=== PATIENT | female | born 1950 | race Caucasian/White ===

== ENCOUNTER 2018-10-29 17:35 | Inpatient (IN) ==
[2018-10-29] MEDS ORDERED: LASIX IV SCH (19:45)
--- NOTE | 2018-10-29 20:24 | Diag Imaging Result Doc PS360 ---
EXAM: CHEST-2 VIEWS HISTORY: SOB TECHNIQUE: Chest two views COMPARISON: 08/13/2017 FINDINGS: The lungs are hyperexpanded. The heart is not enlarged. The vessels are not distended. No consolidation. Likely fibrosis. No pleural effusions. IMPRESSION: Emphysema Electronically signed by Jon Sarabia 10/29/2018 8:22 PM
[2018-10-29] MEDS: LEVAQUIN 250 MG/D5W 250 MG/50 ML IVPB IV SCH (20:32)
[2018-10-29] MEDS ORDERED: NICODERM PATCH TD PRN (21:16)
[2018-10-29 21:25] LABS: HEMOGLOBIN A1C 5.7 % (4.8-6.0)
[2018-10-29 21:26] LABS: BASO# 0.01 X1000 (0.0-0.2); BASO% 0.2 % (0.0-0.8); EOS# 0.13 X1000 (0.0-0.7); EOS% 2.2 % (0.0-10.0); HEMATOCRIT 21.6 % (37.0-47.0); HEMOGLOBIN 6.7 g/dL (12.0-16.0); IMM GRAN# 0.06 X1000 (0.0-0.04); MCH 29.1 PG (27-31); MCV 93.9 FL (81-99); MONO# 0.43 X1000 (0.11-0.59); MONO% 7.2 % (1.7-9.3); MPV 9.7 FL (7.4-10.4); NEUT# 4.77 X1000 (1.4-6.5); NEUT% 79.4 % (42.2-75.2); PLT 260 X1000 (130-400); RDW 14.2 % (11.5-14.5)
[2018-10-29] MEDS ORDERED: D50W SYRINGE IV ONE (21:30)
[2018-10-29 21:36] LABS: CALCIUM 7.9 mg/dL (8.8-10.2); CREATININE 2.7 mg/dL (0.5-0.9); POTASSIUM 4.1 mmol/L (3.5-5.1)
[2018-10-29 21:43] LABS: ALB/GLOB RATIO 0.8; ALBUMIN 2.9 g/dL (3.5-5.0); CALCIUM 7.6 mg/dL (8.8-10.2); CREATININE 2.8 mg/dL (0.5-0.9); TOTAL BILIRUBIN 0.29 mg/dL (0.20-1.00); TOTAL PROTEIN 6.6 g/dL (6.3-8.3)
[2018-10-29] MEDS: HUMULIN R SUBQ SCH (23:12)
[2018-10-29] MEDS: NS 250 ML IV SCH (23:30)
[2018-10-29] MEDS ORDERED: NS 250 ML ONE (23:40)
--- NOTE | 2018-10-30 00:11 | HISTORY AND PHYSICAL ---
CHIEF COMPLAINT: Coughing, fatigue and weakness. HPI: She is a 68-year-old white female was not seen in my office since 04/16/2018. Apparently she was seen yesterday. Interval history was reviewed. The patient has left-sided hydronephrosis with stricture and a stone. She has solitary kidney. Baseline creatinine 1.7. She was given dexamethasone yesterday followed by [facility] and did some blood workup. The laboratory data showed worsening of the renal function tests, creatinine was last time in my office 04/17/2018 1.5 and it has gone up to 2.8. CBC showed hemoglobin of 8, hematocrit 24. Patient extremely dyspnea on exertion and not able to get better. A1c 5.7. Admitted to the hospital for worsening of the kidney function tests, acute COPD exacerbation, anemia requiring blood transfusion. For all these reasons, patient was hospitalized. The patient continues to smoke. PAST MEDICAL HISTORY: Absence of right kidney, Crohn disease in remission, type 2 diabetes well controlled, hypertension, chronic hydronephrosis left kidney due to distal ureteral stricture and kidney stone seen by Dr. 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 PAST SURGICAL HISTORY: Is tonsillectomy, pilonidal cyst resection drainage, laparotomy with cysto gastrostomy for cirrhosis for pancreatitis, history of intraabdominal abscess due to Bacteroides infection status post drainage of splenic abscess complicated by pleural effusion, chest tube insertion and complete hysterectomy due to abnormal Pap smear, partial vaginectomy with abdominal dysplasia by Dr. Machuca, cholecystectomy, tubal ligation, cystoscopy followed by stent, left laser lithotripsy, renal pelvic biopsy on 08/22/2018 and the biopsy was negative for malignancy. MEDICATIONS: Lisinopril 10 mg p.o. b.i.d., Protonix 40 daily, Tricor 145 mg daily, amlodipine 10 mg daily, Lexapro 20 daily, glipizide 10 p.o. b.i.d., Lantus 10 units subcu daily, Januvia 100 daily, Ventolin HFA as needed. ALLERGIES: Adhesive tape, Wellbutrin, penicillin. SOCIAL HISTORY: She is , 1 kid, lives in [place]. Continues to smoke. 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 FAMILY HISTORY: Father of renal cell carcinoma at 73. Mom at 74 with complications from diabetes and renal failure. HEALTH MAINTENANCE: Flu vaccine 2018, pneumococcal 2017, last mammography 04/2018, DEXA scan 01/2004, colonoscopy 2015. REVIEW OF SYSTEMS: HEENT: No headache, no vision problem, no earache, no sore throat. Neck: No goiter. No lymphadenopathy. No bruit. Cardiopulmonary: No chest pain, cough, shortness of breath, wheezing, continues to smoke. GI: Less abdominal distention and no belly pain. No dysuria, hesitancy, frequency. History of vaginal cancer under care of Dr. Machuca. No bleeding per vagina and no swelling of legs. No claudication symptoms. Neuro: No focal symptoms or weakness. PHYSICAL EXAMINATION: Temperature is 98.6, pulse 98, blood pressure 101/60, 5 feet 1, 119 pounds. HEENT: Atraumatic, normocephalic. TMs are normal. Nose and throat within normal limits. NECK: Supple. No lymphadenopathy. No goiter. CHEST: Bilateral wheezing. HEART: Sounds are regular. BELLY: Is soft, obese and slightly distended. No peripheral edema. No obvious neurological deficits. INVESTIGATIONS: In my office yesterday, sodium 134, potassium 4.5, chloride 102, BUN 21, creatinine 2.8, glucose 136. CBC. White cell count 10, hematocrit 24, platelets 396,000. A1c 5.7. ASSESSMENT AND PLAN: 1. A 68-year-old white female basically admitted to the hospital with acute chronic obstructive pulmonary disease exacerbation. Plan is oxygen, bronchodilators, IV Levaquin 250 once daily. 2. Tobacco abuse. Nicotine patch. 3. History of asthma on ProAir and Symbicort. 4. Type 2 diabetes is well controlled. Will hold medications and will continue on sliding scale with insulin coverage. 5. Hyperlipidemia on fenofibrate. 6. Hypertension on lisinopril 10 p.o. b.i.d., Norvasc 10 daily and Crohn disease stable. 7. Vaginal carcinoma status post excision external radiation followed by implant seeds. 8. Patient has chronic left hydronephrosis with solitary kidney, status post biopsy and stent by Dr. Fox in August. At that time creatinine is 1.7. Will repeat the CT. 9. Anemia and will closely watch. Will transfuse unit of packed RBC. Vaccinations protocol was up-to-date and will follow up pending labs. cc: Bin Galarza MD
[2018-10-30] MEDS: HUMULIN R SUBQ SCH ×4 (06:36→22:39)
--- NOTE | 2018-10-30 09:40 | Diag Imaging Result Doc PS360 ---
CT IVP (RENAL STONE SEARCH) - 10/30/2018 INDICATION: hydro on left TECHNIQUE: COMPARISON: 09/13/2018 FINDINGS: There is some stable interstitial fibrosis in the lung bases. No infiltrates. Heart size is normal with no pericardial effusion. There is worsening splenomegaly. The spleen measures 15.8 x 13.5 x 6.5 cm. The left nephroureteral stent has been removed. There is severe left hydronephrosis with surrounding edema. There is a small calyceal stone in the left midpole measuring about 3 mm. No radiodense ureteral stones. The urinary bladder is abnormal with diffuse wall thickening and surrounding edema consistent with severe cystitis. Uterus is absent. Rectum is normal. No bowel obstruction or inflammation. No significant constipation. There are moderate degenerative changes of the spine. No acute or suspicious bony lesion. IMPRESSION: 1. Severe left hydronephrosis with surrounding edema. The right kidney is absent. 2. Severely abnormal urinary bladder consistent with chronic cystitis. 3. Small left renal calyceal stone. 4. Worsening splenomegaly. Electronically signed by Solomon Sellers 10/30/2018 9:38 AM
[2018-10-30 09:54] LABS: BASO# 0.02 X1000 (0.0-0.2); BASO% 0.3 % (0.0-0.8); EOS# 0.09 X1000 (0.0-0.7); EOS% 1.1 % (0.0-10.0); HEMOGLOBIN 9.7 g/dL (12.0-16.0); IMM GRAN% 1.3 % (0.0-0.5); LYMPH# 0.51 X1000 (1.2-3.4); LYMPH% 6.5 % (20.5-51.1); MCH 29.8 PG (27-31); MCHC 32.3 g/dL (33-37); MONO# 0.63 X1000 (0.11-0.59); MPV 9.3 FL (7.4-10.4); NEUT# 6.55 X1000 (1.4-6.5); NEUT% 82.8 % (42.2-75.2); PLT 285 X1000 (130-400); RBC 3.26 XMIL (4.2-5.4); RDW 14.7 % (11.5-14.5)
[2018-10-30] MEDS ORDERED: NS 1,000 ML IV SCH (19:15)
--- NOTE | 2018-10-30 21:29 | PROGRESS NOTE ---
DATE: 10/31/2018 SUBJECTIVE: The patient did receive 1 unit of packed RBCs. The patient went for CT and creatinine is 2.8 and complaints of cough and shortness of breath, wheezing. Blood sugars were dropping. OBJECTIVE: Vital signs: Temperature is 98 degrees, pulse is 101, blood pressure is 118/69. HEENT Exam: Within normal limits, wheezing bilaterally. Cardiovascular: Heart sounds are regular. Abdomen: Belly is soft, distended. Extremities: No peripheral edema. Neurologic: No obvious neurological deficits. INVESTIGATIONS: 1. CBC: White cell count 7.9, hematocrit 30, platelets 285,000. SMA 7 is pending. Glucose 42. 2. CT renal stone search: Severe left hydronephrosis with edema and right kidney is absent and also cystitis, small renal caliceal stone and splenomegaly. ASSESSMENT AND PLAN: 1. Hypoglycemia. Hold the medication. D50 was given. Continue sliding scale. 2. Chronic obstructive pulmonary disease exacerbation, bronchodilators and IV Levaquin. 3. Anemia, transfuse 1 unit of packed RBCs, stable. 4. Chronic left hydronephrosis with elevation of creatinine. Gentle hydration. Discussed with Dr. Fox and consult for tomorrow and follow up on urine culture and hold the home medications at this time and discussed with the patient's in my office and repeat the labs in the morning. LEVEL OF DOCUMENTATION: 25 minutes. cc: Bin Galarza MD MTDD
[2018-10-30] MEDS: NS 250 ML IV SCH (22:39)
[2018-10-30] MEDS: LEVAQUIN 250 MG/D5W 250 MG/50 ML IVPB IV SCH (22:39)
[2018-10-31] MEDS: NS 250 ML IV SCH ×2 (02:15→12:13)
[2018-10-31] MEDS: ROBITUSSIN-DM PO PRN ×2 (03:02→08:28)
[2018-10-31] MEDS: ZOFRAN IV PRN (03:03)
[2018-10-31] MEDS: HUMULIN R SUBQ SCH ×4 (06:01→20:14)
[2018-10-31 07:29] LABS: BASO# 0.02 X1000 (0.0-0.2); BASO% 0.4 % (0.0-0.8); EOS# 0.12 X1000 (0.0-0.7); EOS% 2.4 % (0.0-10.0); HEMATOCRIT 26.8 % (37.0-47.0); HEMOGLOBIN 8.5 g/dL (12.0-16.0); IMM GRAN# 0.05 X1000 (0.0-0.04); LYMPH# 0.43 X1000 (1.2-3.4); LYMPH% 8.7 % (20.5-51.1); MCH 29.4 PG (27-31); MCHC 31.7 g/dL (33-37); MCV 92.7 FL (81-99); MONO# 0.48 X1000 (0.11-0.59); MONO% 9.7 % (1.7-9.3); NEUT# 3.87 X1000 (1.4-6.5); NEUT% 77.8 % (42.2-75.2); PLT 234 X1000 (130-400); RBC 2.89 XMIL (4.2-5.4); RDW 14.7 % (11.5-14.5); WBC 4.97 X1000 (4.8-10.8)
[2018-10-31 07:40] LABS: CALCIUM 7.6 mg/dL (8.8-10.2); CREATININE 2.7 mg/dL (0.5-0.9); POTASSIUM 4.5 mmol/L (3.5-5.1)
[2018-10-31] MEDS ORDERED: FENTANYL ONE (09:39)
[2018-10-31] MEDS ORDERED: DIPRIVAN 1% ONE (09:40)
[2018-10-31] MEDS ORDERED: ROBINUL ONE (09:41)
--- NOTE | 2018-10-31 10:26 | Diag Imaging Result Doc PS360 ---
RETROGRADES 2 OR 3 FILMS - 10/31/2018 INDICATION: LEFT RETOGRADE, LEFT STIENT , LEFT HYDRO TECHNIQUE: Left sided ureterogram. The exam was performed by the patient's urologist. Total fluoroscopy time was 14 seconds. 12 images were obtained. COMPARISON: 08/22/2018 FINDINGS: There is no stent on the initial exam. Contrast injection into the left ureter demonstrates rather severe left hydronephrosis stable from the prior exam. A left nephroureteral stent was placed in good position. IMPRESSION: Left hydronephrosis. Good placement of left nephroureteral stent. Electronically signed by Solomon Sellers 10/31/2018 10:24 AM
[2018-10-31] MEDS ORDERED: MORPHINE ONE ×4 (10:54→11:30)
[2018-10-31] MEDS ORDERED: LR 500 ML ONE (10:55)
[2018-10-31] MEDS ORDERED: ROCEPHIN 1 GM in NS 50 ML IV ONE (11:00)
--- NOTE | 2018-10-31 11:35 | CONSULTATION ---
DATE OF CONSULTATION: 10/31/2018 CHIEF COMPLAINT: Left hydronephrosis with acute kidney injury. HISTORY OF PRESENT ILLNESS: Ms. Holland is a 68-year-old with type 2 diabetes, hypertension, solitary left kidney, history of pancreatitis, gastroesophageal reflux disease, and vaginal cancer who presents in consultation regarding left hydronephrosis and elevated renal function. The patient had undergone a cystoscopy and a left ureteroscopy with laser incision of ureteropelvic junction due to ureteropelvic junction obstruction. The patient had some stones removed at that time, and had a stent placed, and was subsequently removed in September. She was scheduled to see me back in the office in the next week. However, patient developed a COPD exacerbation, and was seen by Dr. Galarza's office. She was found to have an elevated creatinine at 2.8 from 1.5, and a low hemoglobin and hematocrit. The patient is admitted to the hospital, and underwent a CT scan yesterday which showed worsening of her left hydronephrosis. In talking with the patient, she denies any flank pain, nausea, or vomiting, but does state that she has had some burning with urination. She also states she has some shortness of breath and a cough. She denies any chest pain. PAST MEDICAL HISTORY: 1. Crohn's disease in remission. 2. Type 2 diabetes. 3. Hypertension. 4. Solitary left kidney with chronic hydronephrosis due to ureteropelvic junction obstruction. 5. Hyperlipidemia. 6. Drug-induced pancreatitis. 7. Gastroesophageal reflux disease. 8. Spondylolisthesis. 9. History of vaginal malignancy. PAST SURGICAL HISTORY: 1. Tonsillectomy. 2. Pilonidal cyst removal. 3. Laparotomy for pancreatic cyst gastrostomy. 4. History of intra-abdominal abscesses status post drainage. 5. Complete hysterectomy. 6. Partial vaginectomy. 7. Cystoscopy with left ureteroscopy and laser incision of ureteropelvic junction and stent placement. HOME MEDICATIONS: 1. Lisinopril 10 mg p.o. b.i.d. 2. Protonix 40 mg daily. 3. Tricor 145 mg daily. 4. Amlodipine 10 mg daily. 5. Lexapro 20 mg daily. 6. Glipizide 10 mg p.o. b.i.d. 7. Lantus 10 units subcutaneous daily. 8. Januvia 100 mg daily. 9. Ventolin p.r.n. ALLERGIES: 1. Tape. 2. Wellbutrin. 3. Penicillin. SOCIAL HISTORY: She is a chronic smoker. Denies alcohol or illicit drug use. FAMILY HISTORY: Father of renal cell carcinoma. No other malignancy's. REVIEW OF SYSTEMS: Twelve-point review of systems performed with all positive and negative's in HPI PHYSICAL EXAMINATION: Vital Signs: Temperature 97.8 degrees, heart rate 91, blood pressure 101/62, and oxygen saturation 96% on room air. General: No acute distress. Resting comfortably in bed. Alert and oriented x3. HEENT: Normocephalic, atraumatic. Pupils equal, round, and reactive to light. Mucous membranes moist. Respiratory: Good respiratory effort without audible wheezing or rales. Cardiovascular: No evidence of tachycardia. No lower extremity edema. Abdomen: Soft, nontender, and nondistended. No palpable masses or hepatosplenomegaly. : No suprapubic tenderness. No CVA tenderness. Neurologic: Gross motor and sensory intact. Skin: No obvious skin lesions or rashes. LABORATORY DATA: White blood cell count 4.9, hemoglobin 8.5, hematocrit 26.8, and platelets 234,000. Sodium 135, potassium 4.5, chloride 100, bicarb 26, BUN 29, creatinine 2.7, and glucose 122. IMAGING: CT of abdomen and pelvis performed on 10/30/2018, which showed evidence of a worsening of her left hydronephrosis and narrowing at the ureteropelvic junction. No obvious stranding is seen. There is a small stone within the collecting system itself. ASSESSMENT AND PLAN: Ms. Holland is a 68-year-old with history of type 2 diabetes, COPD, Crohn's disease, hypertension, hyperlipidemia, drug-induced pancreatitis, gastroesophageal reflux disease, vaginal cancer, and history of solitary left kidney with hydronephrosis. The patient was taken the operating room back in August for cystoscopy, left ureteroscopy, and laser incision of her ureteropelvic junction. The patient's stent was removed and patient was voiding without issue. However, on recent CT scan, her kidney has more evidence of hydronephrosis than preoperatively. She is having worsening renal function with Cr of 2.8 from 1.7. I recommended proceeding with cystoscopy, left ureteral stent placement for optimization of drainage. Risks, benefits, and alternatives of surgical procedure were discussed with the patient. The patient elected to proceed. We will plan to perform this later today. cc: MD Bin Alonzo MD MTDD
[2018-10-31] MEDS: NS 1,000 ML IV SCH (14:08)
--- NOTE | 2018-10-31 18:52 | OPERATIVE NOTE ---
PROCEDURE DATE: 10/31/2018 PREOPERATIVE DIAGNOSES: 1. Left hydronephrosis. 2. Acute kidney injury. 3. History of left ureteropelvic junction obstruction. POSTOPERATIVE DIAGNOSES: 1. Left hydronephrosis. 2. Acute kidney injury. 3. Left ureteropelvic junction obstruction. 4. Urinary tract infection. 5. Bladder masses. PROCEDURE PERFORMED: 1. Cystoscopy with left retrograde pyelogram. 2. Left ureteral stent placement. 3. Bladder biopsy with fulguration of bleeding. SURGEON: Freddie Fox MD COUNTER CUTTER: None. COMPLICATIONS: None. BLOOD LOSS: 2 mL DRAINS: 1. A 6 x 22 cm left ureteral stent. 2. A 16-Thai Cho catheter. SPECIMENS: 1. Urine for culture. 2. Bladder biopsies from anterior bladder wall and left lateral wall. INDICATION FOR PROCEDURE: Ms. Holland is a 68-year-old with multiple comorbidities including diabetes, COPD, prior vaginal cancer as well as a solitary left kidney. The patient has left ureteropelvic junction obstruction and had previously undergone a left ureteroscopy and endopyelotomy for treatment; however, the patient had recurrence of her stricture on recent CT scan which showed significant hydronephrosis, with worsening renal function. The patient was admitted to the hospital after she was found to have increased work of breathing and concern for COPD exacerbation. The patient's creatinine was elevated at 2.8 at that time and is 2.7 today. Images were reviewed which outlined a significant worsening of her ureteropelvic junction. I recommend that we consider cystoscopy and left ureteral stent placement. Risks, benefits and alternatives of the procedure were discussed. The patient elected proceed. DESCRIPTION OF PROCEDURE: After informed consent was obtained, the patient was brought to the operating room and placed on the operating table in supine position. The patient has been receiving antibiotics on the floor and underwent LMA placement. She was then placed into a dorsal supine position and was prepped and draped in the usual fashion. Preoperative time-out was performed with all parties in agreement, including Anesthesia, Surgical and nursing staff. At this point I inserted a 21-Thai cystourethroscope in through the urethra, which appeared to be normal. No evidence of stricture disease or papillary lesions. The entirety of the bladder was then inspected. Multiple erythematous areas were seen. Most concerning were areas on the left side of the bladder as well as the anterior wall of the bladder. These appeared to be papillary and different than typical inflammatory changes after UTI. Clear urine was seen from the left ureteral orifice. No right ureteral orifice was visualized. At this point I obtained an open-ended catheter, flushed of all bubbles. The left ureteral orifice was cannulized and injected with Omnipaque, which outlined a normal ureter all the way up into a very hydronephrotic collecting system, with high insertion of the ureter. At this point I passed a wire through the open-ended catheter up to the kidney itself and a 6 x 22 cm stent easily passed into the collecting system. A good curl was seen fluoroscopically within the kidney and endoscopically visualized in the bladder. On placement of this, a large amount of purulent material was obtained from the left collecting system. This was irrigated out of the bladder multiple times. Once this was adequately irrigated out, the patient did have a slight decrease in her blood pressure, requiring starting on blood pressure assistance with phenylephrine. The patient remained afebrile and relatively stable from Anesthesia standpoint. At this point I passed a rigid biopsy forceps into the bladder and did multiple biopsies of the anterior bladder wall, as well as the left lateral wall of the bladder. These were each fulgurated and good hemostasis was obtained. The patient's bladder was left full and a 16-Thai Cho catheter inserted, inflated with 10 mL of sterile water and placed to gravity drainage. Good position of the stent was confirmed on post drainage fluoroscopy. The patient was awoken and then was taken to recovery in stable condition. cc: MD Bin Alonzo MD MTDD
[2018-10-31] MEDS: LEVAQUIN 250 MG/D5W 250 MG/50 ML IVPB IV SCH (20:10)
[2018-10-31] MEDS: NORCO-5 PO PRN (21:57)
[2018-11-01] MEDS: NS 1,000 ML IV SCH ×2 (01:30→21:59)
--- NOTE | 2018-11-01 02:18 | PROGRESS NOTE ---
DATE: 10/31/2018 SUBJECTIVE: The patient did receive 1 unit of packed RBCs. Complains of cough. Urine is culture infection. I discussed with Dr. Fox, the patient has been scheduled for cysto and retro. CT findings discussed with the patient. The patient has been NPO. The patient is slightly dry. OBJECTIVE: Vital signs: Temperature is 100.2 degrees, tachycardic, blood pressure is 110/73. Respiratory: Slightly dry. Scattered wheezing. Heart: Sounds are regular. Abdomen: Belly is soft, slightly distended. Extremities: No peripheral edema. INVESTIGATIONS: CBC: White cell count 4.9, hematocrit 26.8, platelets 234,000. Sodium 135, potassium 4.5, BUN 29, creatinine 2.7. Glucose 200. Urine cultures gram- negative dequan. Chest x- ray was stable, emphysema. ASSESSMENT AND PLAN: 1. Anemia, chronic. Status post 1 unit of packed RBCs. Continue to watch. 2. Urinary tract infection with left hydronephrosis. IV Levaquin. Follow up on urine culture. 3. Chronic kidney disease with acute kidney failure. Waiting for cystoscopy and retrograde pyelogram, and follow up on the labs in the morning. 4. Type 2 diabetes. Sliding scale with insulin coverage. Increasing IV fluids. 5. History of vaginal cancer. stable. 6. Will follow up on the cystoscopy, retrograde pyelogram findings with Dr. Fox. I appreciated his consult and followup. LEVEL OF DOCUMENTATION: 25 minutes. cc: Bin Galarza MD MTDD
[2018-11-01] MEDS: NS 250 ML IV SCH ×3 (03:19→21:59)
[2018-11-01] MEDS: HUMULIN R SUBQ SCH ×4 (07:31→21:56)
[2018-11-01 07:33] LABS: BASO# 0.01 X1000 (0.0-0.2); BASO% 0.2 % (0.0-0.8); EOS# 0.12 X1000 (0.0-0.7); EOS% 2.6 % (0.0-10.0); HEMATOCRIT 25.6 % (37.0-47.0); HEMOGLOBIN 7.9 g/dL (12.0-16.0); IMM GRAN# 0.04 X1000 (0.0-0.04); IMM GRAN% 0.9 % (0.0-0.5); LYMPH# 0.45 X1000 (1.2-3.4); LYMPH% 9.6 % (20.5-51.1); MCH 29.6 PG (27-31); MCHC 30.9 g/dL (33-37); MCV 95.9 FL (81-99); MONO# 0.35 X1000 (0.11-0.59); MONO% 7.5 % (1.7-9.3); MPV 9.8 FL (7.4-10.4); NEUT# 3.71 X1000 (1.4-6.5); NEUT% 79.2 % (42.2-75.2); PLT 220 X1000 (130-400); RBC 2.67 XMIL (4.2-5.4); RDW 14.8 % (11.5-14.5); WBC 4.68 X1000 (4.8-10.8)
[2018-11-01 07:37] LABS: CALCIUM 7.3 mg/dL (8.8-10.2); CREATININE 2.5 mg/dL (0.5-0.9); POTASSIUM 4.4 mmol/L (3.5-5.1)
--- NOTE | 2018-11-01 08:29 | PROGRESS NOTE ---
DATE: 11/01/2018 SUBJECTIVE: Postoperative day 1 from cystoscopy, left retrograde pyelogram, left ureteral stent placement, and bladder biopsies, who presents today for follow-up after the procedure yesterday. The patient overall feels well. She denies any fevers or chills. Her catheter has been draining clear yellow urine with some sediment. She denies any flank pain, but does have some bladder discomfort, likely from the catheter. She denies any nausea or vomiting. PHYSICAL EXAMINATION: Vital Signs: Temperature 98.8 degrees, heart rate 85, blood pressure 108/51, oxygen saturation 100% on nasal cannula. Respiratory: Good respiratory effort without audible wheezing or rales. General: No acute distress. Resting comfortably in bed. Abdomen: Soft, nontender, nondistended. No suprapubic tenderness. No CVA tenderness. : Urethral catheter in place draining clear yellow urine with a small amount of sediment in the dependent portion of the tubing. LABORATORY: White blood cell count 4.7, hemoglobin 7.9, hematocrit 25.6, and platelets 220,000. Sodium 136, potassium 4.4, chloride 104, bicarb 23, BUN 28, and creatinine 2.5, glucose 100 ASSESSMENT AND PLAN: Ms. Holland is a 68-year-old with type 2 diabetes, hypertension, solitary left kidney, history of pancreatitis, and gastroesophageal reflux disease, vaginal cancer, history of Crohn's disease, hyperlipidemia who presents postoperative day 1 from cystoscopy, left ureteral stent placement and bladder biopsies. The patient's renal function slowly improved. Her creatinine today is 2.5 from 2.8 on admission. The patient has a positive urine culture growing E. Coli that was initially resistant to the Levaquin. It is sensitive to amikacin, Ancef, nitrofurantoin and Zosyn. We will plan on keeping her on Rocephin at this time as her bacteria is sensitive to this. We will keep indwelling catheter in until renal function improves further. The patient recorded about 1150cc from the catheter yesterday. The patient clinically looks stable. She is afebrile with stable vital signs. We will continue to monitor. Please call with questions or concerns. We will plan to remove her catheter tomorrow as long as her renal function continues to improve. cc: MD Bin Alonzo MD MTDD
[2018-11-01] MEDS: DUONEB (A & A) INH PRN ×3 (10:08→20:39)
[2018-11-01] MEDS: KEFZOL 1 GM/D5W 1 GM/50 ML IVPB IV SCH ×2 (10:25→21:53)
[2018-11-01] MEDS: ZOFRAN IV PRN (11:04)
[2018-11-01] MEDS ORDERED: TYLENOL PO ONE (14:29)
--- NOTE | 2018-11-01 20:12 | PROGRESS NOTE ---
DATE: 11/01/2018 SUBJECTIVE: Interval history was reviewed. The patient is feeling a little better. Decreased cough. Cho was placed. Urine looks cloudy. Urine cultures Escherichia coli resistant to Levaquin. Patient is allergic to penicillin. Reported some rash. No anaphylactic shock. Added some bladder tumors. Biopsy was done. We will discuss with Dr. Fox. PHYSICAL EXAMINATION: Vital Signs: She is running 100 and pulse is 88. Blood pressure is 128/56. HEENT: Within normal limits. Neck: Supple. Chest: Bilateral air entry. Heart: Sounds are regular. Belly is soft, nontender. Cho was placed. LABORATORY DATA: CBC: White cell count 4.6, hematocrit 25.6, platelets 220,000. Sodium 136, potassium 4.4, BUN 28, creatinine 2.8, glucose 196. Urine cultures are Escherichia coli. ASSESSMENT AND PLAN: 1. Anemia. We will transfuse 1 more unit. 2. Dehydration. We will continue IV fluids. 3. Acute kidney injury on chronic kidney disease status post stent placed and follow up on renal function tests. 4. Escherichia coli. Change to the Ancef, discontinue Levaquin. 5. Chronic obstructive pulmonary disease, stable on bronchodilators. 6. Diabetes on sliding scale with insulin coverage. 7. Bladder biopsy. We will follow up. 8. History of vulvar cancer status post radiation, stable. We will repeat the labs in the morning. I explained the plan of care with the family at bedside. LEVEL OF DOCUMENTATION: 25 minutes. cc: Bin Galarza MD
[2018-11-01] MEDS: NORCO-5 PO PRN (22:01)
[2018-11-02] MEDS ORDERED: LASIX IV SCH (04:30)
[2018-11-02] MEDS: NS 1,000 ML IV SCH ×2 (06:49→20:30)
[2018-11-02] MEDS: HUMULIN R SUBQ SCH ×4 (06:51→20:38)
[2018-11-02 07:49] LABS: BASO# 0.02 X1000 (0.0-0.2); BASO% 0.4 % (0.0-0.8); EOS# 0.07 X1000 (0.0-0.7); EOS% 1.5 % (0.0-10.0); HEMATOCRIT 29.4 % (37.0-47.0); HEMOGLOBIN 9.3 g/dL (12.0-16.0); IMM GRAN# 0.08 X1000 (0.0-0.04); IMM GRAN% 1.7 % (0.0-0.5); LYMPH% 8.4 % (20.5-51.1); MCH 29.5 PG (27-31); MCHC 31.6 g/dL (33-37); MCV 93.3 FL (81-99); MONO# 0.41 X1000 (0.11-0.59); MONO% 8.6 % (1.7-9.3); MPV 9.9 FL (7.4-10.4); NEUT% 79.4 % (42.2-75.2); PLT 250 X1000 (130-400); RBC 3.15 XMIL (4.2-5.4); RDW 15.7 % (11.5-14.5); WBC 4.78 X1000 (4.8-10.8)
[2018-11-02 08:07] LABS: CALCIUM 7.3 mg/dL (8.8-10.2); CREATININE 2.3 mg/dL (0.5-0.9); POTASSIUM 4.3 mmol/L (3.5-5.1)
[2018-11-02] MEDS: KEFZOL 1 GM/D5W 1 GM/50 ML IVPB IV SCH ×2 (10:00→20:30)
[2018-11-02] MEDS: DUONEB (A & A) INH PRN ×3 (10:58→23:51)
[2018-11-02] MEDS: ZOFRAN IV PRN (15:17)
[2018-11-02] MEDS: NORCO-5 PO PRN (20:38)
[2018-11-02] MEDS: ROBITUSSIN-DM PO PRN (20:39)
--- NOTE | 2018-11-02 22:34 | PROGRESS NOTE ---
DATE: 11/02/2018 SUBJECTIVE: Patient is doing better. Urine is clear and bladder biopsy is pending. Received 2 units of blood. Still running low-grade fever. Vitals are stable now, 91% room air. Chest is decreased wheezing. Heart sounds are regular. Belly is soft, nontender. Excellent urine output in the Cho. ASSESSMENT AND PLAN: 1. Acute kidney injury with chronic renal failure with possible pyelonephritis status post double- J stent and continue to improve of creatinine. Follow up on the CBC, BMP. 2. Chronic obstructive pulmonary disease, stable. 3. Diabetes stable. 4. Escherichia coli on cefazolin and continue present treatment. Follow up. LEVEL OF DOCUMENTATION: 25 minutes. cc: Bin Galarza MD
[2018-11-03] MEDS: HUMULIN R SUBQ SCH ×4 (06:39→20:56)
[2018-11-03 07:24] LABS: BASO# 0.02 X1000 (0.0-0.2); BASO% 0.4 % (0.0-0.8); EOS# 0.11 X1000 (0.0-0.7); EOS% 2.2 % (0.0-10.0); HEMATOCRIT 29.1 % (37.0-47.0); HEMOGLOBIN 9.4 g/dL (12.0-16.0); IMM GRAN# 0.08 X1000 (0.0-0.04); IMM GRAN% 1.6 % (0.0-0.5); LYMPH# 0.46 X1000 (1.2-3.4); LYMPH% 9.3 % (20.5-51.1); MCH 29.7 PG (27-31); MCHC 32.3 g/dL (33-37); MCV 92.1 FL (81-99); MONO# 0.44 X1000 (0.11-0.59); MONO% 8.9 % (1.7-9.3); MPV 9.8 FL (7.4-10.4); NEUT# 3.83 X1000 (1.4-6.5); NEUT% 77.6 % (42.2-75.2); PLT 221 X1000 (130-400); RBC 3.16 XMIL (4.2-5.4); RDW 15.3 % (11.5-14.5); WBC 4.94 X1000 (4.8-10.8)
[2018-11-03 07:46] LABS: CALCIUM 7.3 mg/dL (8.8-10.2); CREATININE 1.9 mg/dL (0.5-0.9)
[2018-11-03] MEDS: KEFZOL 1 GM/D5W 1 GM/50 ML IVPB IV SCH ×2 (08:30→20:56)
[2018-11-03] MEDS: DUONEB (A & A) INH PRN ×3 (10:43→22:57)
[2018-11-03] MEDS: NS 1,000 ML IV SCH (11:52)
--- NOTE | 2018-11-03 14:16 | PROGRESS NOTE ---
DATE: 11/03/2018 SUBJECTIVE: Patient is still wheezing and coughing, and a Cho was placed. A lot of sediment was coming out and the patient did receive 2 units of packed RBCs. EXAMINATION: Vital Signs: Temp is 98, pulse 80, blood pressure 134/69, 95% on room air. Lungs: Bilateral wheezing. Heart: Sounds are regular. Abdomen: Belly is soft, nontender. Urine cultures: E coli. LABS: CBC: White cell count 4.9, hematocrit 29, platelets 231,000. Creatinine 1.9. ASSESSMENT AND PLAN: 1. E coli sensitive to cefazolin. 2. Acute kidney injury, improving. 3. Chronic renal failure. Baseline creatinine 1.7. Continue on Cho. 4. Anemia status post 2 units of packed RBC. 5. Bladder lesions. Follow up on the biopsy. 6. COPD. Added on bronchodilators with Breo. 7. Type 2 diabetes on insulin sliding scale protocol and continue to monitor CBC and BMP on a daily basis until Sunday. LEVEL OF DOCUMENTATION: 25 minutes. cc: Bin Galarza MD
[2018-11-03] MEDS: BREO ELLIPTA 100/25 MCG INH INH SCH (15:29)
[2018-11-03] MEDS: ZOFRAN IV PRN (18:51)
[2018-11-03] MEDS: NORCO-5 PO PRN (20:56)
[2018-11-03] MEDS: ROBITUSSIN-DM PO PRN (20:59)
[2018-11-04] MEDS: NS 1,000 ML IV SCH ×3 (00:43→13:53)
[2018-11-04] MEDS: HUMULIN R SUBQ SCH ×4 (06:12→20:32)
[2018-11-04 06:27] LABS: BASO# 0.02 X1000 (0.0-0.2); BASO% 0.3 % (0.0-0.8); EOS# 0.13 X1000 (0.0-0.7); EOS% 2.2 % (0.0-10.0); HEMATOCRIT 28.8 % (37.0-47.0); HEMOGLOBIN 9.3 g/dL (12.0-16.0); IMM GRAN# 0.08 X1000 (0.0-0.04); IMM GRAN% 1.4 % (0.0-0.5); LYMPH% 8.4 % (20.5-51.1); MCH 29.7 PG (27-31); MCHC 32.3 g/dL (33-37); MONO# 0.42 X1000 (0.11-0.59); MONO% 7.1 % (1.7-9.3); MPV 9.8 FL (7.4-10.4); NEUT# 4.77 X1000 (1.4-6.5); NEUT% 80.6 % (42.2-75.2); PLT 221 X1000 (130-400); RBC 3.13 XMIL (4.2-5.4); RDW 15.2 % (11.5-14.5); WBC 5.92 X1000 (4.8-10.8)
[2018-11-04] MEDS: ZOFRAN IV PRN ×2 (06:33→18:49)
[2018-11-04 06:58] LABS: CALCIUM 7.7 mg/dL (8.8-10.2); CREATININE 1.8 mg/dL (0.5-0.9); POTASSIUM 4.3 mmol/L (3.5-5.1)
[2018-11-04] MEDS: BREO ELLIPTA 100/25 MCG INH INH SCH (09:31)
[2018-11-04] MEDS: DUONEB (A & A) INH PRN ×3 (09:31→22:15)
[2018-11-04] MEDS: KEFZOL 1 GM/D5W 1 GM/50 ML IVPB IV SCH ×2 (10:09→20:32)
--- NOTE | 2018-11-04 12:40 | PROGRESS NOTE ---
DATE: 11/04/2018 SUBJECTIVE: Ms. Holland is feeling better. She has acute on chronic renal failure, chronic anemia, COPD, and has bladder lesions. She has Escherichia coli UTI, has been getting Kefzol IV. Her general condition is about the same. OBJECTIVE: Lungs: Sound clear. Heart: Heart sounds are normal. Abdomen: Soft, diffusely tender. LABORATORY DATA: White count is 5.92, hemoglobin 9.3, hematocrit 28.8. PLAN: She is getting IV Kefzol as well as IV fluids. She had a cystoscopy done and left retrograde pyelogram done and left ureteral stent was placed in by Dr. Fox. We are going to continue to watch her closely. -9 cc: MD Bin Terrazas MD
[2018-11-04] MEDS: NORCO-5 PO PRN (20:32)
[2018-11-04] MEDS: ROBITUSSIN-DM PO PRN (20:32)
[2018-11-05] MEDS: NS 1,000 ML IV SCH (00:57)
[2018-11-05] MEDS: HUMULIN R SUBQ SCH (06:15)
[2018-11-05] MEDS: ZOFRAN IV PRN (06:59)
[2018-11-05 07:41] LABS: BASO# 0.03 X1000 (0.0-0.2); BASO% 0.5 % (0.0-0.8); EOS# 0.15 X1000 (0.0-0.7); EOS% 2.6 % (0.0-10.0); HEMATOCRIT 28.3 % (37.0-47.0); HEMOGLOBIN 9.1 g/dL (12.0-16.0); IMM GRAN# 0.05 X1000 (0.0-0.04); IMM GRAN% 0.9 % (0.0-0.5); LYMPH# 0.46 X1000 (1.2-3.4); LYMPH% 7.9 % (20.5-51.1); MCH 29.5 PG (27-31); MCHC 32.2 g/dL (33-37); MCV 91.9 FL (81-99); MONO# 0.45 X1000 (0.11-0.59); MONO% 7.8 % (1.7-9.3); NEUT# 4.65 X1000 (1.4-6.5); NEUT% 80.3 % (42.2-75.2); PLT 237 X1000 (130-400); RBC 3.08 XMIL (4.2-5.4); RDW 15.2 % (11.5-14.5); WBC 5.79 X1000 (4.8-10.8)
[2018-11-05 08:05] VITALS: BP 157/77
[2018-11-05] MEDS ORDERED: PREVNAR 13 IM ONE (08:14)
--- NOTE | 2018-11-05 08:14 | PROGRESS NOTE ---
DATE: 11/05/2018 SUBJECTIVE: No acute events overnight. The patient remains afebrile. Good urinary output through her urethral catheter. She denies any significant pain or discomfort. Tolerating a diet. OBJECTIVE: Vital Signs: Temperature 98.7 degrees, heart rate 81, blood pressure 157/62, oxygen saturation is 98% on room air. General: No acute distress. Resting comfortably in bed, alert and oriented times 3. Abdomen: Soft, nontender, nondistended. No palpable masses or hepatosplenomegaly. Respiratory: Good respiratory effort without audible wheezing or rales. : No suprapubic tenderness. No CVA tenderness. Urethral catheter in place draining clear yellow urine. ASSESSMENT AND PLAN: Ms. Holland is a 68-year-old with type 2 diabetes, hypertension, solitary left kidney, history of pancreatitis, gastroesophageal reflux disease, vaginal cancer, history of Crohn disease, hyperlipidemia who underwent cystoscopy with left ureteral stent placement and bladder biopsies on 10/31/2018. The patient's urine cultures have grown Escherichia coli, and currently on Ancef for this. The patient remains afebrile with good urinary output through her urethral catheter. I think this can be removed. Her basic metabolic panel yesterday showed a stable creatinine at 1.8 and is creatinine is 1.5 today. She denies any nausea, vomiting, has had bowel movements, and has been up to the bedside commode. I think clinically she is improving. We will take her Cho out this morning and see if she is able to urinate. From a urology standpoint has met goals of urologic discharge. We will continue following while inpatient. Please call with questions or concerns. cc: MD Bin Alonzo MD MTDD
[2018-11-05 08:19] LABS: CALCIUM 7.1 mg/dL (8.8-10.2); CREATININE 1.5 mg/dL (0.5-0.9); POTASSIUM 3.6 mmol/L (3.5-5.1)
[2018-11-05] MEDS: KEFZOL 1 GM/D5W 1 GM/50 ML IVPB IV SCH (08:53)
[2018-11-05] MEDS: BREO ELLIPTA 100/25 MCG INH INH SCH (09:38)
--- NOTE | 2018-11-07 04:00 | DISCHARGE SUMMARY ---
ADMISSION DATE: 10/29/2018 DISCHARGE DATE: 11/05/2018 DISCHARGING DIAGNOSES: 1. Acute kidney injury with chronic renal failure due to chronic hydronephrosis on the left kidney with distal ureteral stricture. 2. Hematuria due to bladder lesion, benign by biopsy. 3. Left intrarenal kidney stone. 4. Absence of right kidney. 5. Anemia due to chronic disease. 6. Crohn disease in remission. 7. Type 2 diabetes. 8. Hypertension. 9. Hyperlipidemia. 10. History of drug-induced pancreatitis. 11. Acid reflux disease. 12. Spondylolisthesis of L5-S1. 13. History of vulvar cancer in remission. 14. 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 CONSULTATIONS: Dr. Freddie Fox. PROCEDURES: Cystoscopy, left retrograde pyelogram, left ureteral stent placement, bladder biopsy with fulguration bleeding, transfusion off 2 units of packed RBCs. BRIEF HISTORY: Please see the H and P that was done on 10/29/2018. In brief, she is a 68-year- old white female basically admitted to the hospital with anemia, worsening of kidney function tests, shortness of breath, wheezing. She was found to have hemoglobin of 6, creatinine 2.9. Baseline creatinine was 1.7. HOSPITAL COURSE: 1. The patient continues to smoke and COPD exacerbation. The patient was given initially oxygen, bronchodilators, IV Levaquin. 2. Anemia. Transfusion of 1 unit of packed RBCs. 3. Worsening of kidney function tests. CT renal stone search showed worsening of the hydronephrosis as well as a stone in the left kidney. The patient had 2 months ago did the same procedure by Dr. Fox. He was consulted, and on the following day the patient had a cystoscopy followed by intraureteral double-J stent. There was a lot of pus in the urine as well as bloody drainage noted. The patient did require another unit of packed RBCs. Urine cultures grew E. Coli sensitive to Ancef. Cho was discontinued. The patient got better. DISCHARGE LABORATORIES: At the time of discharge the labs were as follows: CBC: White cell count 5.7, hematocrit 28, platelets 237,000. Sodium 138, potassium 3.6, chloride 109, BUN 17, creatinine 1.5, glucose 134. Urine cultures, E. coli sensitive to Ancef, resistant to Levaquin. DISCHARGE INSTRUCTIONS: The patient was discharged home in a stable condition with the following instructions: 1. Lisinopril 10 p.o. b.i.d., Protonix 40 daily, fenofibrate 145 mg daily, amlodipine 10 daily, Lexapro 20 daily. We will stop the glipizide since chronic kidney disease and causing hypoglycemia. Lantus 10 units subcutaneous daily, Geritol 1 tablet daily, Januvia 100 daily, Ventolin HFA as needed, and Macrobid 50 p.o. b.i.d., Breo inhalation 1 tablet daily, Spiriva 1 puff daily. 2. Quit smoking. Follow up in my office in 10 days as well as Dr[address] Fox. 3. Initiate vaccination protocol prior to the discharge. cc: MD Freddie Black MD
== END 2018-11-05 10:16 | disposition home or self-care (01) | DRG 660 ==
LOC: DIRADM 17:35 → 3N 17:54
PROVIDERS: ADMIT Internal Medicine; ATTEND Internal Medicine
CPT/HCPCS: 36430; 71020; 71046; 74176; 74420; 80048; 80053; 82948; 83036; 83880; 84484; 85025; 86850; 86900; 86901; 86920; 87077; 87088; 87186; 88305; 88313; 94640; 94761; A9270; J0690; J0696; J1940; J1956; J2270; J2405; J3010; J7030; J7050; J7120; P9016; Q9966; Q9967; XXXXX

== ENCOUNTER 2019-02-09 12:35 | Inpatient (IN) ==
[2019-02-09 13:06] LABS: BASO# 0.06 X1000 (0.0-0.2); BASO% 0.4 % (0.0-0.8); EOS# 0.07 X1000 (0.0-0.7); EOS% 0.4 % (0.0-10.0); HEMATOCRIT 31.5 % (37.0-47.0); HEMOGLOBIN 10.2 g/dL (12.0-16.0); IMM GRAN# 0.34 X1000 (0.0-0.04); IMM GRAN% 2.2 % (0.0-0.5); LYMPH# 1.27 X1000 (1.2-3.4); LYMPH% 8.1 % (20.5-51.1); MCH 30.6 PG (27-31); MCHC 32.4 g/dL (33-37); MCV 94.6 FL (81-99); MONO# 0.94 X1000 (0.11-0.59); MPV 9.6 FL (7.4-10.4); NEUT# 12.98 X1000 (1.4-6.5); NEUT% 82.9 % (42.2-75.2); PLT 521 X1000 (130-400); RBC 3.33 XMIL (4.2-5.4); RDW 13.3 % (11.5-14.5); WBC 15.66 X1000 (4.8-10.8)
[2019-02-09] MEDS ORDERED: NS 500 ML IV ONE (13:24)
[2019-02-09] MEDS ORDERED: NS 1,000 ML IV ONE (13:26)
[2019-02-09 13:35] LABS: POTASSIUM 5.6 mmol/L (3.5-5.1)
[2019-02-09 13:36] LABS: ALB/GLOB RATIO 0.9; ALBUMIN 3.1 g/dL (3.5-5.0); CALCIUM 5.4 mg/dL (8.8-10.2); CREATININE 3.3 mg/dL (0.5-0.9); TOTAL BILIRUBIN 0.25 mg/dL (0.20-1.00); TOTAL PROTEIN 6.5 g/dL (6.3-8.3)
--- NOTE | 2019-02-09 14:34 | PROVIDER DOCUMENTATION ---
This chart was entered by Jocelin Hernandez Scribe, acting as scribe for Wagner Iglesias MD. HPI-General Adult - General Chief Complaint: Nausea/Vomiting Stated Complaint: WEAKNESS,VOMITING,DIARRHEA Time Seen by Provider: 02/09/19 13:03 Source: patient Allergies/Adverse Reactions: Patient Allergies Allergy/AdvReac Type Severity Reaction Status Date / Time adhesive Allergy Intermediate RASH Verified 02/09/19 14:01 bupropion HCl * Allergy Intermediate RASH Verified 02/09/19 14:01 [From Wellbutrin] Penicillins Allergy Intermediate RASH Verified 02/09/19 14:01 Home Medications: Home Medication List Medication Instructions Recorded Confirmed Last Taken Type LISINOpril [Prinivil] 10 mg PO BID 06/10/12 02/09/19 02/09/19 History Pantoprazole [Protonix] 40 mg PO DAILY 06/10/12 02/09/19 02/09/19 History Amlodipine Besylate 10 mg PO DAILY 08/09/17 02/09/19 02/07/19 History Escitalopram [Lexapro] 20 mg PO DAILY 08/09/17 02/09/19 02/07/19 History Fenofibrate [Tricor] 145 mg PO DAILY 08/09/17 02/09/19 02/07/19 History Insulin Glargine [Lantus] 10 units SQ DAILY 08/09/17 02/09/19 02/07/19 History Mv, Min #36/Iron,Carbonyl/FA 1 tab PO DAILY 08/09/17 02/09/19 02/07/19 History [Geritol Complete Tablet] Sitagliptin Phosphate [Januvia] 100 mg PO DAILY 08/09/17 02/09/19 02/09/19 History Albuterol Sulfate [Ventolin Hfa] 1 puff INH PRN PRN 08/01/18 02/09/19 02/05/19 History Fluticasone/Vilanterol [Breo 1 ea INHALATION DAILY #3 aer.[email or web address] 11/05/18 02/09/19 Unknown Rx Ellipta Inhaler] Budesonide/Formoterol Fumarate 1 puff INH PRN PRN 02/09/19 02/09/19 02/07/19 History [Symbicort 160-4.5 Mcg Inhaler] Hydrocodone/Acetaminophen 1 tab PO PRN PRN 02/09/19 02/09/19 02/08/19 History [Hydrocodone-Acetamin 7.5-325] Ondansetron HCl 1 tab PO PRN PRN 02/09/19 02/09/19 02/08/19 History Tolterodine L.a. [Detrol LA] 1 tab PO DAILY 02/09/19 02/09/19 02/07/19 History - History of Present Illness -Gen Adult Nature of Presenting Problems: 69 y/o female presents to the ED with complaint of n/v/d, SOB, cough with thick mucous production, and fever times with one with headache times two days as well as increasing weakness with fall times two. The patient gives a history of blood on toilet paper but is unsure if the blood is of vaginal or rectal origin. She gives a history of Crohn's disease, vaginal wall cancer, diabetes, hypertension, and COPD. Location of Pain/Injury: reports: generalized Onset/Duration: reports: 1 week ago Timing: reports: still present Context/Activities at Onset: reports: light activity Associated Symptoms: reports: cough, diarrhea, fever/chills, nausea, vomiting, weakness, other (bleeding either abnormal uterine or rectal) Similar Symptoms Previously?: No Recently seen or treated by another doctor?: No Review of Systems - Adult - REVIEW OF SYSTEMS - ADULT Constitutional: reports: fever, other (weakness). denies: chills, night sweats Respiratory: reports: cough, shortness of breath. denies: hemoptysis, wheezing Gastrointestinal: reports: diarrhea, nausea, rectal bleeding (possible), vomiting. denies: abdominal pain Genitourinary: denies: dysuria, discharge, frequency Past History - Adult - PAST MEDICAL HISTORY-ADULT Review of Records: reports: Old Records Reviewed, Nursing Assessment Review, Medications Reviewed Major Childhood Illnesses: reports: denies history Cardiovascular: reports: HTN Respiratory: reports: asthma, COPD Gastrointestinal: reports: denies history Obstetrical/Gynecological: reports: denies history Genitourinary: reports: denies history Musculoskeletal: reports: denies history Neurological: reports: denies history Endocrine/Immune: reports: Diabetes Other Conditions: reports: denies history - PRIOR SURGERIES/PROCEDURES Surgical/Procedure History: reports: reviewed, not pertinent, cholecystectomy, hysterectomy, BTL - IMMUNIZATION STATUS Childhood Immunizations: See Nurse Assessment Flu Vaccine: See Nurse Assessment - FAMILY HISTORY Family History: reviewed, not pertinent - SOCIAL HISTORY Smoking: cigarettes Provider spent 3-5 mins advising pt. on dangers of tobacco.: Discussed manners to quit use, and f/u contacts for add'l counseling. Living Situation: family Physical Exam-General - PHYSICAL EXAM-ADULT Initial Vital Signs Reviewed: Yes - CONSTITUTIONAL General Appearance: alert, thin - EYES Eyes: PERRL/EOMI - HEAD, EARS, NOSE, MOUTH & THROAT HENMT: normocephalic/atraumatic, moist mucous membranes, other (edentulous) - NECK Neck: full range of motion, supple - RESPIRATORY Respiratory: no pleuratic chest pain, wheezing (faint inspiratory and expiratory). negative: crackles, rhonchi - CARDIOVASCULAR Cardiovascular: no JVD, tachycardia - GASTROINTESTINAL (ABDOMEN) Abdominal Exam: normal bowel sounds, soft, tenderness (mild LLQ). negative: distended, guarding, rebound - SKIN Integumentary: warm/dry, other (two healing skin tears on posterior LUE from recent fall) - NEUROLOGIC Neurologic: grossly normal Progress - PLAN OF CARE/RESULTS Progress/Plan/Lab Results: Vital Signs - 8 hr 02/09/19 12:37 Temperature 98.2 F Pulse Rate 112 H Respiratory Rate 20 Blood Pressure 105/69 O2 Sat by Pulse Oximetry 92 L Laboratory Results - last 24 hr 02/09/19 02/09/19 02/09/19 12:47 12:47 12:53 WBC 15.66 H RBC 3.33 L Hgb 10.2 L Hct 31.5 L MCV 94.6 MCH 30.6 MCHC 32.4 L RDW Std Deviation 13.3 Plt Count 521 H MPV 9.6 Immature Gran % (Auto) 2.2 H Neut % (Auto) 82.9 H Lymph % (Auto) 8.1 L [place] % (Auto) 6.0 Eos % (Auto) 0.4 Baso % (Auto) 0.4 Immature Gran # (Auto) 0.34 H Neut # (Auto) 12.98 H Lymph # (Auto) 1.27 [place] # (Auto) 0.94 H Eos # (Auto) 0.07 Baso # (Auto) 0.06 POC Glucose 184 H Plasma Lactate 0.9 Orders Category Date Time Status Saline Loc DIRECTED Care 02/09/19 12:45 Active NPO Diet 02/09/19 12:45 Active AMYLASE [CHEM] Stat Lab 02/09/19 12:47 Received CBC WITH ELECTRONIC DIFF [HEME] Stat Lab 02/09/19 12:47 Completed COMPREHENSIVE METABOLIC PANEL [CHEM] Stat Lab 02/09/19 12:47 Received LACTATE, PLASMA [CHEM] Stat Lab 02/09/19 12:47 Completed LIPASE [CHEM] Stat Lab 02/09/19 12:47 Received URINALYSIS W/POSS RFLX CULT [URINALYSIS] Stat Lab 02/09/19 12:45 Uncollected EKG [EKG] Stat Ther 02/09/19 12:45 Ordered 1339 Calcium 5.4. Will check phosphorus level. Result Diagrams: 02/09/19 12:47 02/09/19 12:47 - EKG 1 Time of EKG reading by physician:: 12:49 EKG Read and Signed by:: Wagner Iglesias EKG Interpretation (*Must complete 3 of following elements*): Abnormal Rate: 124 Rhythm: sinus tachycardia [place]: normal Comments: cannot rule out anterior infarct age undetermined Departure - Departure Date of Disposition Decision: 02/09/19 Time of Disposition Decision: 14:27 DIAGNOSIS: Weakness, Acute kidney injury, Hypocalcemia, Hyponatremia Disposition: ADMITTED INPATIENT 09 Certified Medical Emergency: Emergent Condition: Stable Referrals and Follow-Ups: Curtis Galarza MD [Primary Care Provider] - - Critical Care Note This patient required my direct & personal management of CC.: No Attestation - Physician/ ARIE Attestation Patient care was provided by Advanced Practice Provider:: No The physician spent face to face time with patient:: Yes Advanced Practice Provider documentation review:: Supervising physician onsite and consulted in the evaluation and care of this patient. The physician did have a face to face encounter with the patient. This chart was documented by the indicated scribe, (Jocelin Hernandez, Deshawn) and accurately reflects the services I performed and decisions made by me, Wagner Iglesias MD, as attested by the provider's signature.
--- NOTE | 2019-02-09 14:36 | Diag Imaging Result Doc PS360 ---
EXAM: CHEST-2 VIEWS INDICATION: short of breath TECHNIQUE: 2 views COMPARISON: 10/29/2018 FINDINGS: There is stable blunting of the left costophrenic angle suggesting chronic pleural thickening. The lungs are grossly clear, otherwise. There is no discrete pleural fluid collection or pneumothorax. The cardiomediastinal silhouette and central vasculature are grossly unremarkable. IMPRESSION: Stable chronic pleural thickening at the left costophrenic angle. No definite acute pathology, otherwise. Electronically signed by Francis Bishop 02/09/2019 2:34 PM
--- NOTE | 2019-02-09 15:31 | Diag Imaging Result Doc PS360 ---
EXAM: US RENAL 2 (RETROPER) COMPLETE INDICATION: GISELA TECHNIQUE: COMPARISON: 01/13/2012 FINDINGS: There is a congenitally absent right kidney. There is moderate to severe dilation of the left renal collecting system. This was seen on the previous study as well but it is probably slightly worse. There is a 2 mm hyperechoic focus that probably represents a tiny intrarenal stone. No solid renal mass is identified. The left kidney measures 10.6 cm in the greatest longitudinal axis and measures up to 1 cm in cortical thickness. The urinary bladder is grossly unremarkable. IMPRESSION: Congenitally absent right kidney and a dilated left renal collecting system that is also seen on the previous study but appears worse. Electronically signed by Francis Bishop 02/09/2019 3:29 PM
[2019-02-09] MEDS ORDERED: SODIUM CHLORIDE 0.9% INJ SCH (17:30)
--- NOTE | 2019-02-09 17:44 | EKG Report ---
Test Performed on : 02/09/2019 12:43:30 PM Test Reason : weakness Blood Pressure : / mmHG Vent. Rate : 124 BPM Atrial Rate : 124 BPM P-R Int : 118 ms QRS Dur : 074 ms QT Int : 312 ms P-R-T Axes : 067 019 093 degrees QTc Int : 448 ms Sinus tachycardia. Cannot rule out Anterior infarct , age undetermined Abnormal ECG When compared with ECG of 01-AUG-2018 08:20, No significant change was found Unconfirmed Result
[2019-02-09] MEDS: NS 1,000 ML IV SCH (18:19)
[2019-02-09] MEDS: DILAUDID IV PRN ×2 (18:22→22:43)
--- NOTE | 2019-02-09 18:34 | HISTORY AND PHYSICAL ---
CHIEF COMPLAINT: Dizziness, gastroenteritis symptoms, recurrent falls, nausea, vomiting, diarrhea, bleeding per vagina. HISTORY OF PRESENT ILLNESS: She is a 69-year-old white female who came to the ER with a 1-week history of above symptoms. She looks pale, dehydrated. 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 She has some tissue. Nothing can be done. As a result, she has chronic hydronephrosis on the left kidney, and Dr. Fox is replacing the stents as needed. The patient was discharged in this hospital 3 months ago. She also had a fall and sustained injury to the left forearm with abrasions. Workup revealed elevated white cell count. Creatinine 3.3, baseline is 1.5. She has a congenital absence of right kidney. Basically admitted to the hospital. IV fluids, and I also will do a consult with Dr. Fox about the evaluation of the left kidney. PAST MEDICAL HISTORY: 1. Absence of right kidney. 2. Crohn's disease, in remission. 3. Type 2 diabetes. 4. Hypertension. 5. Chronic hydronephrosis of left kidney due to distal ureteral stricture and kidney stone. 6. Hyperlipidemia. 7. Drug-induced pancreatitis from [place]. 8. Acid reflux disease. 9. Spondylolisthesis of L5-S1. 10. 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 PAST SURGICAL HISTORY: 1. Tonsillectomy. 2. Pilonidal cyst resection and drainage. 3. Laparotomy with a cystogastrostomy for pseudocyst from the pancreatitis. 4. History of chest tube during that admission for parapneumonic effusion. 5. Complete hysterectomy. 6. Partial vaginectomy with abnormal dysplasia by Dr. Machuca 7. Cholecystectomy. 8. Tubal ligation. 9. Cystoscopy with double-J stents. 10. Left laser lithotripsy. 11. Bladder biopsy was negative for malignancy. ALLERGIES: Adhesive tape, Wellbutrin, penicillin. SOCIAL HISTORY: She is . One kid lives in [place]. No smoking. No alcohol. 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 FAMILY HISTORY: Father of renal cell carcinoma at 73. Mom at 74 with complications from diabetes and renal failure. HEALTH MAINTENANCE: Flu vaccine 2018, pneumococcal vaccine 2017. Last mammography 04/2018, colonoscopy 2015. MEDICATIONS: Lisinopril 10 mg p.o. b.i.d., Protonix 40 mg daily, Tricor 145 daily, amlodipine 10 daily, Lexapro 20 mg daily, Lantus 10 units subcutaneous daily, Icar C Plus 1 tablet daily, Januvia 100 daily, Ventolin HFA q.6 as needed, hydrocodone as needed, Zofran as needed, Detrol LA 2 mg daily, Symbicort 160/4.5 daily. REVIEW OF SYSTEMS: HEENT: No headache. No dizziness. No earache. No sore throat. Neck: No goiter. No lymphadenopathy. No bruit. Cardiopulmonary: No chest pain, shortness of breath, PND, or orthopnea. GI: Nausea, vomiting, abdominal pain, cramping, diarrhea and bleeding from the vagina. Extremities: No swelling of legs. No joint pains. Neurologic: No focal symptoms or weakness. PHYSICAL EXAMINATION: VITAL SIGNS: Temperature is 98.5 degrees, tachycardic, room air 95%, blood pressure 125/65. HEENT: Slightly pale. Atraumatic, normocephalic. Pupils equal, react to light. TMs are normal. Nose and throat within normal limits. NECK: Supple. No lymphadenopathy. No goiter. CHEST: Bilateral air entry. HEART: Sounds are regular. ABDOMEN: Belly is soft, nontender. The patient is in diapers. EXTREMITIES: No peripheral edema, cyanosis, or clubbing. SKIN: Dry. With the left forearm, she has impetigo lesions noted from the fall. INVESTIGATIONS: CBC: White cell count 15, hematocrit 31.5, platelets 521,000. Sodium 130, potassium 5.6, BUN is 57, creatinine 3.3, glucose 172, calcium 5.4. LFTs were normal. Lipase is slightly elevated. Urinalysis is pending. ASSESSMENT: A 69-year-old white female admitted to the hospital with recurrent falls with gastroenteritis symptoms, acute kidney injury with chronic renal failure. PLAN: 1. Renal ultrasound. Cho catheter. 2. IV fluids. 3. Orthostatic blood pressure. 4. Daily CBC and BMP. 5. Gastrointestinal prophylaxis with IV Protonix and recurrent vaginal cancer. If things will not get better, we will do a CT of the abdomen and pelvis. Dr. Fox consult. 6. Hold the home medicines for diabetes. Sliding scale with insulin coverage. Discussed the plan of care with the family and will follow up. cc: Bin Galarza MD MTDD
[2019-02-09 20:22] LABS: URINE SOURCE CATH
[2019-02-09 20:24] LABS: BILIRUBIN URINE NEGATIVE (NEGATIVE); BLOOD URINE LARGE (NEGATIVE); COLOR ORANGE; GLUCOSE URINE NEGATIVE (NEGATIVE); KETONE URINE TRACE mg/dL (NEGATIVE); LEUKOCYTES URINE LARGE (NEGATIVE); NITRITE URINE NEGATIVE (NEGATIVE); PROTEIN URINE 300 mg/dL (NEGATIVE); SP GRAVITY URINE 1.015; TURBIDITY URINE TURBID (CLEAR); UROBILINOGEN URINE NORMAL (NORMAL)
[2019-02-09 20:26] LABS: UR EPITHELIAL CELLS <10 /HPF (<10); URINE BACTERIA NEGATIVE /HPF; URINE RBC TNTC /HPF (<10); URINE WBC TNTC /HPF (<10)
[2019-02-09 20:29] LABS: URINE YEAST NONE SEEN
[2019-02-09] MEDS: HUMULIN R SUBQ SCH (21:36)
[2019-02-09] MEDS: PROTONIX IV SCH (21:39)
[2019-02-10] MEDS: DILAUDID IV PRN ×4 (05:35→22:57)
[2019-02-10 06:40] LABS: BASO# 0.03 X1000 (0.0-0.2); BASO% 0.4 % (0.0-0.8); EOS% 1.2 % (0.0-10.0); HEMATOCRIT 24.8 % (37.0-47.0); IMM GRAN# 0.14 X1000 (0.0-0.04); IMM GRAN% 1.7 % (0.0-0.5); LYMPH% 9.6 % (20.5-51.1); MCH 30.7 PG (27-31); MCHC 32.3 g/dL (33-37); MONO% 8.4 % (1.7-9.3); MPV 9.7 FL (7.4-10.4); NEUT# 6.54 X1000 (1.4-6.5); NEUT% 78.7 % (42.2-75.2); PLT 375 X1000 (130-400); RBC 2.61 XMIL (4.2-5.4); WBC 8.31 X1000 (4.8-10.8)
[2019-02-10] MEDS: HUMULIN R SUBQ SCH ×4 (06:45→21:50)
[2019-02-10 06:51] LABS: CALCIUM 4.8 mg/dL (8.8-10.2); CREATININE 2.9 mg/dL (0.5-0.9); POTASSIUM 4.3 mmol/L (3.5-5.1)
[2019-02-10] MEDS ORDERED: CALCIUM GLUCONATE 1 GM in NS 50 ML IV ONE (07:25)
[2019-02-10] MEDS ORDERED: NS 500 ML IV ONE (07:35)
[2019-02-10] MEDS ORDERED: ZOFRAN IV PRN (07:49)
[2019-02-10] MEDS ORDERED: LEVAQUIN 250 MG/D5W 250 MG/50 ML IVPB IV ONE (07:49)
--- NOTE | 2019-02-10 08:44 | CONSULTATION ---
DATE OF CONSULTATION: 02/10/2019 CHIEF COMPLAINT: Left hydronephrosis worsening renal function. HISTORY OF PRESENT ILLNESS: Mrs. Holland is a 69-year-old who was admitted from the emergency room by Dr. Galarza regarding dehydration, intermittent bleeding from her vagina, and worsening renal function. The patient has a history of left ureteropelvic junction obstruction with solitary left kidney from congenital absence. The patient also has a history of vaginal cancer, status post radiation. She has been having some bleeding from her vagina, causing perineal pain. The patient underwent placement of left ureteral stent on 10/31/2018. The patient has a history of ureteropelvic junction on the left, and has undergone endopyelotomy, which did not take. The patient presents today with worsening renal function with a creatinine of 3.3 today, from baseline of around 1.5 to 1.7. She describes having nausea, low-grade fevers, concern for possible urinary tract infection. Indwelling catheter was inserted overnight, and renal function is only mildly improved to 2.9. The patient was made n.p.o. in preparation for cystoscopy and left ureteral stent exchange today. PAST MEDICAL HISTORY: 1. Crohn's disease. 2. Type 2 diabetes. 3. Hypertension. 4. Chronic hydronephrosis of the left kidney. 5. Hyperlipidemia. 6. Pancreatitis. 7. Gastroesophageal reflux disease. 8. Osteoarthritis. 9. History of vaginal cancer, status post radiation and surgery. PAST SURGICAL HISTORY: 1. Tonsillectomy. 2. Laparotomy with cyst gastrostomy for pseudocyst of the pancreas. 3. History of chest tube. 4. Hysterectomy. 5. Partial vaginectomy with removal of abnormal dysplasia. 6. Cholecystectomy. 7. Tubal ligation. 8. Cystoscopy with endopyelotomy and double-J ureteral stent placement. ALLERGIES: 1. Adhesives. 2. Wellbutrin. 3. Penicillin. HOME MEDICATIONS: 1. Lisinopril 10 mg b.i.d. 2. Protonix 40 mg daily. 3. Tricor 145 mg. 4. Amlodipine 10 mg daily. 5. Lexapro 20 mg daily. 6. Lantus 10 mg subcutaneous daily. 7. Januvia 100 mg daily. 8. Ventolin every 6 hours as needed. 9. Hydrocodone p.r.n. 10. Zofran ODT as needed. 11. Detrol LA 2 mg daily. 12. Symbicort 160/4.5 daily. FAMILY HISTORY: Father of renal cell carcinoma. SOCIAL HISTORY: The patient denies alcohol or illicit drug use. The patient is a former smoker. REVIEW OF SYSTEMS: A 12-point review of systems was performed with all pertinent positives and negatives in the HPI. PHYSICAL EXAMINATION: Vital Signs: Temperature 98.1 degrees, heart rate 102, blood pressure 111/59, oxygen saturation 99% on room air. General: Mild distress. Alert and oriented x3. HEENT: Normocephalic, atraumatic. Pupils equal, round, reactive to light. Mucous membranes moist. Neck: Trachea midline. Respiratory: Good respiratory effort, without audible wheezing or rales. Cardiovascular: Regular rhythm, without evidence of tachycardia. Extremities: No evidence of lower extremity edema. Abdomen: Soft, nontender, nondistended. No palpable masses or hepatosplenomegaly. : No suprapubic tenderness. No CVA tenderness. Musculoskeletal: Moving all extremities. Skin: No skin lesions or rashes. Musculoskeletal: No obvious deformities. LABORATORY DATA: White blood cell count 8.3, hemoglobin 8, hematocrit 24.8, platelets 375,000. Sodium 139, potassium 4.3, chloride 110, bicarb 15, BUN 53, creatinine 2.9, calcium 4.8. Urinalysis shows a large amount of blood, large amount of leukocytes, too numerous to count white blood cells and RBCs. ASSESSMENT AND PLAN: Ms. Holland in a 69-year-old with a history of Crohn's disease, type 2 diabetes, hyperlipidemia, drug-induced pancreatitis, osteoarthritis, vaginal cancer, solitary left kidney with ureteropelvic junction obstruction, who presents in consultation regarding elevated renal function with ultrasound yesterday, which showed hydronephrosis of the left kidney. The patient has worsening renal function with a creatinine of 2.9. It was 3.3 yesterday, from a baseline of 1.5 to 1.7. With worsening renal function, I recommended cystoscopy and left ureteral stent exchange. The patient was due for this, but canceled her most recent appointment. The patient will likely need to have her stent exchanged every 3 months, which was relayed to the patient today. Discussed with her the risks, benefits, and alternatives to surgical procedure. The patient elected to proceed. Will plan to do this later today. Please call with questions or concerns. cc: MD Bin Alonzo MD MTDD
[2019-02-10] MEDS ORDERED: DIPRIVAN 1% ONE (09:29)
[2019-02-10] MEDS ORDERED: XYLOCAINE-MPF 2% ONE (09:29)
[2019-02-10] MEDS ORDERED: ROBINUL ONE (09:31)
[2019-02-10] MEDS ORDERED: NEOSTIGMINE ONE (09:32)
[2019-02-10] MEDS: DILAUDID ONE ×4 (11:05→11:31)
[2019-02-10] MEDS: NORCO-7.5 ONE ×2 (11:27→14:50)
--- NOTE | 2019-02-10 11:39 | PROGRESS NOTE ---
DATE: 02/10/2019 SUBJECTIVE: The patient is going for replacement of the stent. Slightly better and also pale. OBJECTIVE: Temp is 98.1 degrees, tachycardic. Vitals are stable. No change to physical exam. Pale. INVESTIGATIONS: CBC: White cell count 8.3, hematocrit 24.8, platelets 375,000. Sodium 139, potassium 4.3, BUN 53, creatinine 2.9, calcium 4.8. Urine cultures are pending. ASSESSMENT AND PLAN: 1. Acute kidney injury with chronic renal insufficiency with chronic hydronephrosis. Dr. Fox is going to replace the double-J stent. 2. Gastroenteritis symptoms, better. 3. Dehydration. Intravenous fluids. 4. Anemia due to chronic disease. Transfusion of 1 unit of packed red blood cell. 5. Diabetes. Continue on sliding scale with insulin coverage. 6. Hypocalcemia. Replace the calcium gluconate. Will reconcile home medicines after the surgery, and continue present treatment. LEVEL OF DOCUMENTATION: 25 minutes. cc: Bin Galarza MD
--- NOTE | 2019-02-10 12:42 | OPERATIVE NOTE ---
PROCEDURE DATE: 02/10/2019 PREOPERATIVE DIAGNOSES: 1. Left ureteropelvic junction obstruction with hydronephrosis. 2. Acute on chronic kidney disease. POSTOPERATIVE DIAGNOSES: 1. Left ureteropelvic junction obstruction with hydronephrosis. 2. Acute on chronic kidney disease. PROCEDURE PERFORMED: 1. Cystoscopy. 2. Left retrograde ureteral stent exchange. SURGEON: Freddie Fox MD SHAREPOINT CONSULTANT: None. COMPLICATIONS: None. SPECIMENS REMOVED: 6x22 left ureteral stent. DRAINS: A 7 x 22 left ureteral stent. ANESTHESIA: LMA. 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 The patient has had prior radiation for the vaginal cancer, and has been having chronic pelvic pain for several weeks now. The patient last had her stent exchange on 10/31/2018. The patient has been having fatigue and tiredness, and was admitted to the hospital by her primary care physician, and was found to have a elevated creatinine at 3.3 from baseline around 1.5 to 1.7. Ultrasound was performed yesterday which showed worsening left hydronephrosis. The patient is taken to the operating room for exchange of her left ureteral stent, and a solitary kidney with worsening renal function. Risks, benefits, and alternatives of the surgical procedure discussed with the patient, and she elected to proceed. DESCRIPTION OF PROCEDURE: After informed consent was obtained, the patient was brought to the operating room and placed on the operating table in the supine position. The patient received preoperative antibiotics, and underwent LMA placement. She was placed into a dorsal lithotomy position. Her Cho catheter was removed. She was prepped and draped in usual sterile fashion. A preoperative time-out was performed. All parties in agreement, including anesthesia, surgical and staff, at which point a vaginal exam was undertaken. The patient had some blanching of the urethra within the vagina itself as well as what appeared to be some necrotic tissue within the vagina. Urethral was normal with no palpable masses along the urethra. Was able to insert the 21-Micronesian cystourethroscope with ease through the urethra and into the bladder. The bladder was very irritated with erythematous changes throughout. No evidence of diverticulum, cellules, bladder stones or papillary lesions Left ureteral stent was extruding from the left ureteral orifice, which was grasped with rigid forceps, and pulled out to the meatus. A ZIPwire was then passed through it up into the kidney with good curl seen within the renal pelvis on fluoroscopy. The stent was completely removed. The wire was then backloaded through the cystourethroscope, and a 7 x 22 cm left ureteral stent was easily passed with good curl seen within the kidney on fluoroscopy, endoscopically visualized in the bladder. A large amount of sedimentary urine returned from the kidney through and around the stent. Her bladder was cycled multiple times, and left full and a 16-Micronesian urethral catheter was inserted through the urethra. It was inflated with 10 mL sterile water and placed to gravity drainage at which point the patient was awoke, and was taken to recovery in stable condition. cc: MD Bin Alonzo MD MTDD
[2019-02-10] MEDS: PYRIDIUM PO SCH ×2 (13:28→20:17)
[2019-02-10] MEDS: DITROPAN PO PRN (13:29)
[2019-02-10] MEDS: NS 1,000 ML IV SCH ×3 (18:56→22:35)
[2019-02-10] MEDS: PROTONIX IV SCH (20:17)
[2019-02-11] MEDS: DITROPAN PO PRN (02:06)
[2019-02-11] MEDS: DILAUDID IV PRN ×7 (02:06→22:37)
[2019-02-11] MEDS: PYRIDIUM PO SCH ×3 (05:00→21:42)
[2019-02-11] MEDS: HUMULIN R SUBQ SCH ×4 (06:51→21:42)
[2019-02-11 07:34] LABS: BASO# 0.01 X1000 (0.0-0.2); BASO% 0.2 % (0.0-0.8); EOS# 0.08 X1000 (0.0-0.7); EOS% 1.4 % (0.0-10.0); HEMATOCRIT 28.2 % (37.0-47.0); HEMOGLOBIN 9.1 g/dL (12.0-16.0); IMM GRAN# 0.05 X1000 (0.0-0.04); IMM GRAN% 0.9 % (0.0-0.5); LYMPH# 0.62 X1000 (1.2-3.4); LYMPH% 10.6 % (20.5-51.1); MCH 30.2 PG (27-31); MCHC 32.3 g/dL (33-37); MCV 93.7 FL (81-99); MONO# 0.48 X1000 (0.11-0.59); MONO% 8.2 % (1.7-9.3); MPV 9.6 FL (7.4-10.4); NEUT# 4.59 X1000 (1.4-6.5); NEUT% 78.7 % (42.2-75.2); PLT 323 X1000 (130-400); RBC 3.01 XMIL (4.2-5.4); RDW 14.4 % (11.5-14.5); WBC 5.83 X1000 (4.8-10.8)
[2019-02-11 08:04] LABS: CREATININE 1.9 mg/dL (0.5-0.9); POTASSIUM 3.9 mmol/L (3.5-5.1)
[2019-02-11 08:15] LABS: CALCIUM 4.7 mg/dL (8.8-10.2)
[2019-02-11] MEDS ORDERED: CALCIUM GLUCONATE 2 GM in NS 100 ML IV ONE (08:16)
[2019-02-11] MEDS: OSCAL 500 + D PO SCH (10:04)
[2019-02-11] MEDS: NS 1,000 ML IV SCH ×2 (10:09→23:10)
--- NOTE | 2019-02-11 21:35 | PROGRESS NOTE ---
DATE: 02/11/2019 SUBJECTIVE: The patient did receive a unit of blood. I appreciate Dr. Fox's consultation. He did change the double-J stent on the left kidney. The patient has a Cho; dark urine noted. The patient is a little better than yesterday. OBJECTIVE: Vital Signs: Temperature is 98 degrees, pulse is 80. Vitals are stable, 97% on room air. General: Pale. HEENT: Within normal limits. Neck: Supple. Chest: Clear. Heart: Sounds are regular. Belly is soft. Decreased tenderness. No neurological deficits. INVESTIGATIONS: White cell count 5.8, hematocrit 28.2, platelets 323,000. Sodium 139, potassium 3.9, chloride 113, BUN 39, creatinine 1.9, calcium 4.7. Urine cultures were negative. ASSESSMENT AND PLAN: 1. Acute kidney injury with chronic renal failure. I appreciated Dr. Fox's consultation. He has given Levaquin. Urine cultures were negative. Gentle hydration. 2. Hypocalcemia. Replace with calcium gluconate 2 g. 3. GI prophylaxis with IV Protonix. 4. Diabetes. Follow up on insulin sliding scale with insulin coverage. 5. Continue calcium with vitamin D. 6. Pain control with Dilaudid. 7. We will hold the home medications until renal function test comes back normal. LEVEL OF DOCUMENTATION: 25 minutes. cc: Bin Galarza MD
[2019-02-11] MEDS: PROTONIX IV SCH (21:42)
[2019-02-12] MEDS: PYRIDIUM PO SCH ×3 (03:46→21:37)
[2019-02-12] MEDS: HUMULIN R SUBQ SCH ×4 (06:21→21:38)
[2019-02-12 07:32] LABS: BASO# 0.01 X1000 (0.0-0.2); BASO% 0.2 % (0.0-0.8); EOS# 0.03 X1000 (0.0-0.7); EOS% 0.7 % (0.0-10.0); HEMATOCRIT 26.5 % (37.0-47.0); HEMOGLOBIN 8.6 g/dL (12.0-16.0); IMM GRAN# 0.05 X1000 (0.0-0.04); IMM GRAN% 1.1 % (0.0-0.5); LYMPH# 0.46 X1000 (1.2-3.4); LYMPH% 10.3 % (20.5-51.1); MCH 30.2 PG (27-31); MCHC 32.5 g/dL (33-37); MONO# 0.29 X1000 (0.11-0.59); MONO% 6.5 % (1.7-9.3); MPV 9.6 FL (7.4-10.4); NEUT# 3.62 X1000 (1.4-6.5); NEUT% 81.2 % (42.2-75.2); PLT 294 X1000 (130-400); RBC 2.85 XMIL (4.2-5.4); RDW 14.1 % (11.5-14.5); WBC 4.46 X1000 (4.8-10.8)
[2019-02-12] MEDS ORDERED: NS 500 ML IV ONE (07:40)
[2019-02-12 07:55] LABS: POTASSIUM 3.8 mmol/L (3.5-5.1)
[2019-02-12 07:56] LABS: CREATININE 1.4 mg/dL (0.5-0.9)
[2019-02-12 08:05] LABS: CALCIUM 5.1 mg/dL (8.8-10.2)
--- NOTE | 2019-02-12 08:46 | PROGRESS NOTE ---
DATE: 02/12/2019 SUBJECTIVE: No acute events overnight. The patient did have a small amount of nausea yesterday which seems to be getting better. Her urethral catheter continued to drain clear yellow urine with 700cc recorded yesterday. She denies any nausea, vomiting, or pain this morning. She denies any discomfort with the catheter. The patient remains afebrile. OBJECTIVE: Vital Signs: Temperature 98.4 degrees, blood pressure 112/77, heart rate 84, and oxygen saturation 98%. General: No acute distress. Resting comfortably in bed. Alert and oriented x3. Respiratory: Good respiratory effort without audible wheezing or rales. Abdomen: Soft, nontender, and nondistended. No palpable masses. : No suprapubic tenderness. No CVA tenderness. Urethral catheter in place draining clear yellow urine. LABORATORY: White blood cell count 4.5, hemoglobin 8.6, hematocrit 26.5, and platelets 294,000. Sodium 139, potassium 3.8, chloride 114, bicarb 15, BUN 32, creatinine 1.4, and calcium 5.1. ASSESSMENT AND PLAN: Mrs. Holland is a 69-year-old with history of Crohn's disease, type 2 diabetes, hypertension, hyperlipidemia, jamil otitis, gastroesophageal reflux disease, history of vaginal cancer status post radiation, and history of solitary left kidney with ureteropelvic junction obstruction. The patient was taken to the operating room on Sunday for cystoscopy and left ureteral stent exchange. The patient's renal function has improved with creatinine 1.4 today from 3.3 on admission. She is making good urinary output, and denies any flank pain at this time. I think it is reasonable to remove her catheter as her creatinine has returned to normal. The patient did have some significant vaginal discoloration, and concern for avascular versus necrotic tissue. The patient has been seen by her gynecologic oncologist regarding this, and was told nothing there was nothing to do. The patient has been applying Preparation-H to this. I think it is reasonable to consider applying Estrace cream. 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 We could consider the lidocaine cream while she is here in the hospital to help with discomfort. I would like to see how she does once the catheter is removed, and can follow up in the outpatient setting. The patient will need regular stent exchanges likely every 3 months. We will continue to monitor from a urologic standpoint. Please call with questions or concerns. cc: MD Bin Alonzo MD MTDD
[2019-02-12] MEDS: OSCAL 500 + D PO SCH (08:49)
[2019-02-12] MEDS: LEVAQUIN 250 MG/D5W 250 MG/50 ML IVPB IV SCH (08:51)
[2019-02-12] MEDS ORDERED: CALCIUM GLUCONATE 2 GM in NS 100 ML IV ONE (09:30)
[2019-02-12] MEDS ORDERED: CALMOSEPTINE OINTMENT TOP PRN (10:09)
--- NOTE | 2019-02-12 11:02 | Diag Imaging Result Doc PS360 ---
EXAM: FLUROSCOPY CYSTO 02/10/2019 HISTORY: L URETERAL STENT EXCHANGE TECHNIQUE: Six images COMMENT: The previously placed left ureteral stent was exchanged over a guidewire by Dr. Fox. IMPRESSION: Left ureteral stent exchange. Electronically signed by Chidi Morris 02/12/2019 10:59 AM
[2019-02-12] MEDS: NS 1,000 ML IV SCH (16:37)
[2019-02-12] MEDS: PROTONIX IV SCH (21:37)
[2019-02-12] MEDS: AMBIEN PO SCH (21:37)
--- NOTE | 2019-02-12 22:38 | PROGRESS NOTE ---
DATE: 02/12/2019 SUBJECTIVE: The patient is feeling nauseous last night. Also complains of insomnia. I spoke to Dr. Fox. He wants to discontinue Cho and the patient did receive 2 units of packed RBC. Looks slightly feeble and Dr. Fox informed the patient needs a MANTEL CRAFTSMAN exam as well. PHYSICAL EXAM: Temperature is 98 degrees, pulse is 95. Vitals are stable.HEENT: Within normal limits. Neck: Supple. Chest: Bilateral air entry. Heart: Sounds are regular. Abdomen: Belly is soft, nontender. Neurologic: No obvious deficits. INVESTIGATIONS: CBC: White cell count 4.4, hematocrit 26.5, platelets 294,000. Sodium 138, potassium 3.8, BUN 32, creatinine 1.4, glucose 146, calcium 5.1. ASSESSMENT AND PLAN: 1. Anemia due to chronic disease status post 2 units of packed RBC. Maintain around 30. 2. Acute kidney injury is improving. 3. Chronic renal failure, stable. 4. No evidence of urinary tract infection. Continue IV Levaquin 250 q.24. Gentle hydration. 5. Discontinue Cho. 6. Replace the calcium gluconate. 7. Ambien for sleep. 8. We will hold the home medications until she stabilizes and repeat the labs in the morning. LEVEL OF DOCUMENTATION: 25 minutes. cc: Bin Galarza MD
[2019-02-13] MEDS: PYRIDIUM PO SCH (05:16)
[2019-02-13] MEDS: NS 1,000 ML IV SCH ×2 (05:16→18:33)
[2019-02-13] MEDS: HUMULIN R SUBQ SCH ×5 (06:09→22:02)
[2019-02-13] MEDS: LEVAQUIN 250 MG/D5W 250 MG/50 ML IVPB IV SCH (07:50)
[2019-02-13] MEDS ORDERED: XANAX PO ONE (07:58)
[2019-02-13 08:11] LABS: BASO# 0.02 X1000 (0.0-0.2); BASO% 0.4 % (0.0-0.8); EOS# 0.04 X1000 (0.0-0.7); EOS% 0.7 % (0.0-10.0); HEMATOCRIT 31.2 % (37.0-47.0); HEMOGLOBIN 10.5 g/dL (12.0-16.0); IMM GRAN# 0.05 X1000 (0.0-0.04); IMM GRAN% 0.9 % (0.0-0.5); LYMPH# 0.47 X1000 (1.2-3.4); LYMPH% 8.6 % (20.5-51.1); MCH 30.9 PG (27-31); MCHC 33.7 g/dL (33-37); MCV 91.8 FL (81-99); MONO# 0.34 X1000 (0.11-0.59); MONO% 6.2 % (1.7-9.3); MPV 9.5 FL (7.4-10.4); NEUT# 4.57 X1000 (1.4-6.5); NEUT% 83.2 % (42.2-75.2); PLT 269 X1000 (130-400); RDW 14.1 % (11.5-14.5); WBC 5.49 X1000 (4.8-10.8)
[2019-02-13] MEDS ORDERED: CALCIUM GLUCONATE 1 GM in NS 50 ML IV ONE (08:14)
[2019-02-13 08:52] LABS: CREATININE 1.4 mg/dL (0.5-0.9); POTASSIUM 3.5 mmol/L (3.5-5.1)
[2019-02-13 09:02] LABS: CALCIUM 5.5 mg/dL (8.8-10.2)
[2019-02-13] MEDS: OSCAL 500 + D PO SCH (09:41)
[2019-02-13] MEDS ORDERED: XANAX PO SCH (21:00)
[2019-02-13] MEDS: AMBIEN PO SCH (22:00)
[2019-02-13] MEDS: PROTONIX IV SCH (22:01)
--- NOTE | 2019-02-13 22:33 | PROGRESS NOTE ---
DATE: 02/13/2019 SUBJECTIVE: The patient complains of diarrhea. Clostridium difficile toxin were done. Both were negative. She is anxious to go home. Complains of insomnia, anxiety. Appreciate Dr. Fox's consult. REVIEW OF SYSTEMS: None reported. OBJECTIVE: Vital signs: Temperature is 98 degrees, pulse 84. Vitals are stable. General: Slightly pale and slowly improving. Chest: Clear. Cardiovascular: Heart sounds are regular. Abdomen: Belly is soft, nontender. Genitourinary: Cho was taken out. LABORATORY DATA: This morning, CBC: White cell count 5.4, hematocrit 31.2, platelet 269,000. Sodium 137, potassium 3.5, chloride 115, BUN 23, creatinine 1.4, glucose 132. Calcium was very low, 5.5. ASSESSMENT AND PLAN: 1. Urinary tract infection. Urine cultures were negative. 2. Diarrhea. Clostridium difficile is negative. 3. Anemia is better post 2 units of packed RBCs. 4. Acute kidney injury improving after removing the stents. She needs CHIMNEY BUILDER HELPER consult and hypocalcemia. Replace the calcium gluconate, and we will give her Xanax at bedtime, and we will check the labs in the morning. We will discharge and follow up as an outpatient. LEVEL OF DOCUMENTATION: 25 minutes. cc: Bin Galarza MD
[2019-02-14] MEDS: NS 1,000 ML IV SCH (04:03)
[2019-02-14] MEDS: HUMULIN R SUBQ SCH ×2 (04:04→06:03)
[2019-02-14 08:05] LABS: BASO# 0.01 X1000 (0.0-0.2); BASO% 0.2 % (0.0-0.8); EOS# 0.07 X1000 (0.0-0.7); EOS% 1.3 % (0.0-10.0); HEMOGLOBIN 11.2 g/dL (12.0-16.0); IMM GRAN# 0.05 X1000 (0.0-0.04); IMM GRAN% 0.9 % (0.0-0.5); LYMPH# 0.57 X1000 (1.2-3.4); LYMPH% 10.4 % (20.5-51.1); MCH 30.6 PG (27-31); MCHC 32.9 g/dL (33-37); MCV 92.9 FL (81-99); MONO# 0.33 X1000 (0.11-0.59); MPV 9.6 FL (7.4-10.4); NEUT# 4.47 X1000 (1.4-6.5); NEUT% 81.2 % (42.2-75.2); PLT 278 X1000 (130-400); RBC 3.66 XMIL (4.2-5.4); RDW 14.6 % (11.5-14.5)
[2019-02-14] MEDS ORDERED: CALCIUM GLUCONATE PO ONE (08:15)
[2019-02-14 08:43] LABS: CREATININE 1.5 mg/dL (0.5-0.9); POTASSIUM 3.8 mmol/L (3.5-5.1)
[2019-02-14] MEDS: LEVAQUIN 250 MG/D5W 250 MG/50 ML IVPB IV SCH (09:45)
[2019-02-14] MEDS ORDERED: CITRACAL + D PO ONE (10:15)
[2019-02-14] MEDS: OSCAL 500 + D PO SCH (10:54)
[2019-02-14 11:04] VITALS: BP 129/75
--- NOTE | 2019-02-18 13:28 | DISCHARGE SUMMARY ---
ADMISSION DATE: 02/09/2019 DISCHARGE DATE: 02/14/2019 DISCHARGING DIAGNOSIS: Altered mental status due to metabolic encephalopathy. SECONDARY DIAGNOSIS: 1. Acute kidney injury with chronic renal failure. 2. Anemia due to bleeding from the vagina. 3. Chronic hydronephrosis on the left kidney. 4. Absence of right kidney. 5. Crohn's disease in remission. 6. Type 2 diabetes. 7. Hypertension. 8. Hyperlipidemia. 9. Drug-induced pancreatitis. 10. Acid reflux disease. 11. Chronic spondylolisthesis of L5-S1. 12. History of malignant vaginal neoplasm, status post radiation under the care of Dr. Rao. CONSULT: Freddie Fox. PROCEDURES: 1. Left ureteropelvic junction obstruction with hydronephrosis, cystoscopy and left retrograde ureteral stent exchange. 2. Blood transfusion 2 units of packed RBCs. BRIEF HISTORY: Please see the H and P that was done on the day of admission. In brief, she is a 69-year-old white female admitted to the hospital with altered mental status, dizziness, recurrent falls, diarrhea. During this hospital course, patient was found to have elevated BUN and creatinine. HOSPITAL COURSE: 1. The patient was given IV fluids, followed by blood transfusion to maintain hematocrit 30. 2. Intermittent bleeding per vagina. The patient has a exam by Dr. Rao. She has some tissue. 3. Chronic hydronephrosis on the left kidney due to obstruction at UPJ junction. Dr. Fox did a stent placement. Cho was discontinued. Follow up renal function tests came back normal. Significant hypocalcemia. Replaced the calcium several times along with calcium and vitamin D. 4. Diarrhea. The patient was given the Culturelle and follow-up C. difficile antigen and toxin were negative. The patient came back to the baseline. Discharged home in stable condition. LABS: CBC: White cell count 5.5, hematocrit 34, platelet 278,000. Sodium 140, potassium 3.8, chloride 116, BUN 23, creatinine 1.5, glucose 179, calcium 6.0. DISCHARGE INSTRUCTIONS: Initiate vaccination protocol by the policy and calcium with vitamin D 1 tablet daily. Symbicort 1 puff p.o. b.i.d., Zofran as needed for nausea, Breo 1 puff b.i.d., Ventolin HFA as needed, Januvia 100 daily, Geritol 1 tablet daily, Lantus 10 units at bedtime, Lexapro 20 daily, fenofibrate 145 daily, Protonix 40 daily. I am going to hold the blood pressure medicine which include amlodipine and lisinopril and follow up in my office in 10 days for CBC, SMA 7. cc: MD Freddie Black MD
== END 2019-02-14 11:52 | disposition home or self-care (01) | DRG 659 ==
LOC: ED 12:35 → 1N 12:36
PROVIDERS: ADMIT Internal Medicine; ATTEND Internal Medicine

== ENCOUNTER 2019-03-08 02:58 | Inpatient (IN) ==
[2019-03-08] MEDS ORDERED: ATIVAN IM ONE (03:02)
[2019-03-08] MEDS ORDERED: DUONEB (A & A) INH ONE ×2 (03:45→04:09)
[2019-03-08] MEDS ORDERED: NS 500 ML IV ONE ×2 (04:17→09:14)
[2019-03-08] MEDS ORDERED: KEPPRA 500 MG in NS 100 ML IV ONE (04:28)
[2019-03-08 04:55] LABS: BASO# 0.01 X1000 (0.0-0.2); BASO% 0.2 % (0.0-0.8); EOS# 0.04 X1000 (0.0-0.7); EOS% 0.7 % (0.0-10.0); HEMATOCRIT 25.9 % (37.0-47.0); HEMOGLOBIN 8.4 g/dL (12.0-16.0); IMM GRAN# 0.05 X1000 (0.0-0.04); IMM GRAN% 0.9 % (0.0-0.5); LYMPH# 0.39 X1000 (1.2-3.4); MCH 29.9 PG (27-31); MCHC 32.4 g/dL (33-37); MCV 92.2 FL (81-99); MONO# 0.58 X1000 (0.11-0.59); MONO% 10.3 % (1.7-9.3); MPV 10.3 FL (7.4-10.4); NEUT# 4.54 X1000 (1.4-6.5); NEUT% 80.9 % (42.2-75.2); PLT 263 X1000 (130-400); RBC 2.81 XMIL (4.2-5.4); RDW 14.7 % (11.5-14.5); WBC 5.61 X1000 (4.8-10.8)
--- NOTE | 2019-03-08 05:59 | PROVIDER DOCUMENTATION ---
HPI-Neurological Disorder - General Chief Complaint: Seizure Stated Complaint: possible seizure Time Seen by Provider: 03/08/19 04:26 Source: family, EMS Allergies/Adverse Reactions: Patient Allergies Allergy/AdvReac Type Severity Reaction Status Date / Time adhesive Allergy Intermediate RASH Verified 03/08/19 03:43 bupropion HCl * Allergy Intermediate RASH Verified 03/08/19 03:43 [From Wellbutrin] Penicillins Allergy Intermediate RASH Verified 03/08/19 03:43 Home Medications: Home Medication List Medication Instructions Recorded Confirmed Last Taken Type Pantoprazole [Protonix] 40 mg PO DAILY 06/10/12 02/09/19 02/09/19 History Escitalopram [Lexapro] 20 mg PO DAILY 08/09/17 02/09/19 02/07/19 History Fenofibrate [Tricor] 145 mg PO DAILY 08/09/17 02/09/19 02/07/19 History Insulin Glargine [Lantus] 10 units SQ DAILY 08/09/17 02/09/19 02/07/19 History Mv, Min #36/Iron,Carbonyl/FA 1 tab PO DAILY 08/09/17 02/09/19 02/07/19 History [Geritol Complete Tablet] Sitagliptin Phosphate [Januvia] 100 mg PO DAILY 08/09/17 02/09/19 02/09/19 History Albuterol Sulfate [Ventolin Hfa] 1 puff INH PRN PRN 08/01/18 02/09/19 02/05/19 History Fluticasone/Vilanterol [Breo 1 ea INHALATION DAILY #3 aer.[email or web address] 11/05/18 02/09/19 Unknown Rx Ellipta Inhaler] Budesonide/Formoterol Fumarate 1 puff INH PRN PRN 02/09/19 02/09/19 02/07/19 History [Symbicort 160-4.5 Mcg Inhaler] Ondansetron HCl 1 tab PO PRN PRN 02/09/19 02/09/19 02/08/19 History Calcium Citrate/Vitamin D 1 ea PO DAILY #90 tab 02/14/19 Unknown Rx [Citracal + D] - History of Present Illness-Neuro Nature of Presenting Problem: Patient has been treated for vulva cancer with radiation and has been falling a lot at home. She fell and had a seizure at home and ems was called. She had another spell when coming into the hospital. No postictal state. Headache Location: reports: frontal Severity: reports: severe Onset/Duration: reports: abrupt, just prior to arrival Timing: reports: improving Context: reports: head injury Character of Altered Mental Status: reports: decreased responsiveness Any recent trauma/injury?: reports: minor Character of Deficits: reports: impaired speech. denies: new weakness, altered sensation Cognitive Baseline: poor alertness Gait Baseline: walks without assistance Associated Symptoms: reports: denies symptoms Similar Symptoms Previously?: No Recently seen or treated by another doctor?: Yes - Seizure First time to have a seizure?: Yes Witnessed seizure?: Yes () How many seizure episodes?: 1 Duration of episode? (mins): 3 Status Epilepticus: No Character of Seizure: reports: lost consciousness Post-ictal Symptoms: reports: none Review of Systems - Adult - REVIEW OF SYSTEMS - ADULT Constitutional: reports: no symptoms reported Eyes: reports: no symptoms reported Ears, Nose, Mouth & Throat: reports: no symptoms reported Cardiovascular: reports: no symptoms reported Respiratory: reports: no symptoms reported Gastrointestinal: reports: no symptoms reported Genitourinary: reports: see HPI Musculoskeletal: reports: no symptoms reported Integumentary: reports: no symptoms reported Neurological: reports: see HPI Psychiatric: reports: no symptoms reported Endocrine: reports: no symptoms reported Hematologic/Lymphatic: reports: no symptoms reported Allergic/Immunologic: reports: no symptoms reported Past History - Adult - PAST MEDICAL HISTORY-ADULT Review of Records: reports: Old Records Reviewed, Nursing Assessment Review Major Childhood Illnesses: reports: denies history Cardiovascular: reports: HTN Respiratory: reports: asthma, COPD Gastrointestinal: reports: denies history Obstetrical/Gynecological: reports: denies history Genitourinary: reports: denies history Musculoskeletal: reports: denies history Neurological: reports: denies history Endocrine/Immune: reports: Diabetes Other Conditions: reports: denies history - PRIOR SURGERIES/PROCEDURES Surgical/Procedure History: reports: reviewed, not pertinent, cholecystectomy, hysterectomy, BTL - IMMUNIZATION STATUS Childhood Immunizations: See Nurse Assessment Flu Vaccine: See Nurse Assessment - FAMILY HISTORY Family History: reviewed, not pertinent Physical Exam- Neurological - Physical Exam-Neuro Initial Vital Signs Reviewed: Yes General Appearance: mild distress, lethargic Eye Exam: bilateral eye: PERRL (sluggish), EOMI HENMT: TMs normal, pharynx normal, dental decay, other (brusing of the entire face) Head Injury: no evidence of injury Neck: non-tender Respiratory: chest non-tender Cardiovascular: normal peripheral pulses Abdominal Exam: normal bowel sounds Lymphatic: no adenopathy Extremity: normal range of motion statistics manager Exam: abnormal eye position, abnormal speech Coordination/Gait: ABN nose to finger (L) Motor/Sensory: no motor deficit, no sensory deficit Neurologic: statistics manager II-XII nml as tested, other (decreased alertness) Integumentary: normal color, normal turgor, warm/dry - Glascow Coma Scale Best Eye Response: (4) open spontaneously Best Verbal Response: (4) confused conversation Best Motor Response: (5) localizes to pain Total Glascow Score: 13 Progress - PLAN OF CARE/RESULTS Progress/Plan/Lab Results: Vital Signs - 8 hr 03/08/19 03:03 03/08/19 03:51 03/08/19 04:19 Temperature 98.9 F Pulse Rate 129 H 125 H 125 H Respiratory Rate 29 H 26 H 21 Blood Pressure 116/77 O2 Sat by Pulse Oximetry 98 95 97 03/08/19 04:47 03/08/19 04:50 Temperature Pulse Rate 130 H 130 H Respiratory Rate 29 H 28 H Blood Pressure 93/61 O2 Sat by Pulse Oximetry 95 95 Laboratory Results - last 24 hr 03/08/19 03/08/19 03/08/19 03:58 03:58 03:58 WBC 5.61 RBC 2.81 L Hgb 8.4 L Hct 25.9 L MCV 92.2 MCH 29.9 MCHC 32.4 L RDW Std Deviation 14.7 H Plt Count 263 MPV 10.3 Immature Gran % (Auto) 0.9 H Neut % (Auto) 80.9 H Lymph % (Auto) 7.0 L [place] % (Auto) 10.3 H Eos % (Auto) 0.7 Baso % (Auto) 0.2 Immature Gran # (Auto) 0.05 H Neut # (Auto) 4.54 Lymph # (Auto) 0.39 L [place] # (Auto) 0.58 Eos # (Auto) 0.04 Baso # (Auto) 0.01 Plasma Lactate 2.1 Plasma/Serum Ethyl Alc Orders Category Date Time Status Finger Stick Blood Sugar (ED) DIRECTED Care 03/08/19 03:44 Active Notify MD if DIRECTED Care 03/08/19 03:44 Active Saline Loc NOW Care 03/08/19 03:44 Active CHEST-1 VIEW [RAD] Stat Exams 03/08/19 03:[address] HEAD/C-SPINE W/O CONTRAST [CT] Stat Exams 03/08/19 03:00 Taken ALCOHOL BLOOD Stat Lab 03/08/19 03:58 Completed CBC WITH ELECTRONIC DIFF [HEME] Stat Lab 03/08/19 03:58 Completed COMPREHENSIVE METABOLIC PANEL [CHEM] Stat Lab 03/08/19 03:58 Received LACTATE, PLASMA [CHEM] Stat Lab 03/08/19 03:58 Completed MAGNESIUM [CHEM] Stat Lab 03/08/19 03:58 Received 0.9% Sodium Chloride Inj [Ns] 500 ml Med 03/08/19 04:17 Discontinued IV 999 mls/hr Albuterol 2.5MG/Ipratrop 0.5MG [Duoneb (A & A)] Med 03/08/19 03:45 Discontinued 3 ml INH NOW ONE Albuterol 2.5MG/Ipratrop 0.5MG [Duoneb (A & A)] Med 03/08/19 04:09 Discontinued 3 ml INH NOW ONE Levetiracetam [Keppra] 500 mg Med 03/08/19 04:28 Discontinued 0.9% Sodium Chloride Inj [Ns] 100 ml IV NOW Lorazepam [Ativan] Med 03/08/19 03:02 Discontinued 1 mg IM NOW ONE Aerosol Treatments Routine Oth 03/08/19 03:45 Completed Aerosol Treatments Routine Oth 03/08/19 04:09 Completed Aerosol Treatments Stat Oth 03/08/19 03:45 Completed Aerosol Treatments Stat Oth 03/08/19 04:09 Completed Seizure, New Onset Stat Oth 03/08/19 03:44 Ordered EKG [EKG] Stat Ther 03/08/19 04:03 Ordered Transfer/Admit Order [TRANSFER] Routine Transfer 03/08/19 05:33 Ordered Result Diagrams: 03/08/19 03:58 Departure - Departure Date of Disposition Decision: 03/08/19 Time of Disposition Decision: 06:06 DIAGNOSIS: Hypotension, Weakness Disposition: ADMITTED INPATIENT 09 Certified Medical Emergency: Emergent Condition: Serious Referrals and Follow-Ups: Curtis Galarza MD [Primary Care Provider] - - Critical Care Note This patient required my direct & personal management of CC.: Yes Total Time (mins): 43 Critical Care Statement: This patient required my direct personal management to treat or rule out processes, the absence of which, could potentiallly result in sudden, clinically significant life or limb threatening deterioration. Attestation - Physician/ ARIE Attestation Patient care was provided by Advanced Practice Provider:: No The physician spent face to face time with patient:: Yes Advanced Practice Provider documentation review:: Supervising physician onsite and consulted in the evaluation and care of this patient. The physician did have a face to face encounter with the patient.
--- NOTE | 2019-03-08 06:02 | HISTORY AND PHYSICAL ---
PRIMARY CARE PHYSICIAN: Dr. Galarza. CHIEF COMPLAINT: Seizures, falls. HISTORY OF PRESENTING ILLNESS: A 69-year-old elderly female, with a history of multiple medical problems including COPD, diabetes mellitus type 2, hypertension, and Crohn's, who was brought to the emergency department due to patient having a seizure episode. She apparently had a seizure when EMS arrived, and also she had a seizure while in the ED. She also became hypotensive during evaluation in the ED, and not much history could be obtained from patient and most of the history is obtained from family members. As per family, she has been falling and been deteriorating for several weeks. Due to her presenting condition she will require admission for further management. PAST MEDICAL HISTORY: Her past medical history includes vaginal neoplasm, Crohn's, COPD, hyperlipidemia, diabetes mellitus type 2, hypertension, and chronic hydronephrosis of the left kidney, solitary kidney. PAST SURGICAL HISTORY: Cholecystectomy, hysterectomy, bladder surgery, tonsillectomy, and cystoscopy. ALLERGIES: Penicillin. Bupropion. Adhesive tape. CURRENT MEDICATIONS: The patient is not able to provide and the family does not know. Nursing staff will reconcile. SOCIAL HISTORY: A 90-plvb-cmuh history of smoking. No history of alcohol or illicit drug use. FAMILY HISTORY: No history of coronary disease. REVIEW OF SYSTEMS: Unable to obtain. PHYSICAL EXAMINATION: GENERAL: The patient seems mildly confused, however, is arousable. VITAL SIGNS: Temperature 98.9 degrees, pulse 129, respiration 29, blood pressure 116/77. Repeat blood pressure became 93/61. HEENT: The patient has multiple soft tissue contusions on her face from the falls. NECK: There are no masses. CHEST: Clear to auscultation. CARDIOVASCULAR: Regular rate and rhythm. ABDOMEN: Soft. Positive bowel sounds. EXTREMITIES: No edema. NEUROLOGIC: The patient is arousable to verbal and tactile stimuli, but really does not provide any information and seems confused. GENITOURINARY: No bladder distention. SKIN: Warm. LABORATORIES AND STUDIES: WBCs 5.61, hemoglobin 8.4, hematocrit 25.9, platelets 263,000. Other labs and tests pending. ASSESSMENT: A 69-year-old female, with a history of Crohn's, hyperlipidemia, COPD, diabetes mellitus type 2, and hypertension, who was brought to the emergency department due to patient having mental status changes and seizures. She apparently had a seizure when EMS arrived at her home and she had one when she was brought to the emergency department. She seemed moderately confused, she was started on Keppra, and she will require admission. The patient also was found to be hypotensive and she was given a fluid challenge. She will be admitted to ICU for further management. 1. New-onset seizure. 2. Hypotension. 3. Multiple falls. 4. Chronic obstructive pulmonary disease. 5. Diabetes mellitus type 2. PLAN: 1. We will admit the patient to the ICU. 2. Continue neuro checks. The patient on seizure precautions. 3. Continue with IV Keppra. 4. We will continue with IV fluids, and we will start pressors if needed. 5. Continue with DuoNeb. 6. We will monitor blood glucose and put the patient on a sliding scale insulin regimen. 7. We will put the patient on DVT prophylaxis with SCDs. 8. We will continue to follow and reassess, and make further recommendation based on the patient's clinical course. CONDITION: The patient's condition is guarded. cc: Branden Crowder MD
[2019-03-08 06:07] LABS: ALB/GLOB RATIO 0.6; CALCIUM 5.2 mg/dL (8.8-10.2); MAGNESIUM 0.3 mg/dL (1.5-2.7); POTASSIUM 4.1 mmol/L (3.5-5.1); TOTAL BILIRUBIN 0.24 mg/dL (0.20-1.00); TOTAL PROTEIN 5.5 g/dL (6.3-8.3)
[2019-03-08] MEDS ORDERED: MAGNESIUM SULFATE 2 GM/S.W.I. 2 GM/50 ML IVPB IV ONE ×2 (06:11→09:12)
[2019-03-08] MEDS ORDERED: CALCIUM GLUCONATE 1 GM in NS 50 ML IV ONE (06:12)
--- NOTE | 2019-03-08 06:17 | EKG Report ---
Test Performed on : 03/08/2019 04:02:51 AM Test Reason : tachycardia Blood Pressure : / mmHG Vent. Rate : 130 BPM Atrial Rate : 130 BPM P-R Int : 130 ms QRS Dur : 076 ms QT Int : 304 ms P-R-T Axes : 062 -11 062 degrees QTc Int : 447 ms Sinus tachycardia. Inferior infarct , age undetermined Anteroseptal infarct (cited on or before 09-AUG-2017) Abnormal ECG When compared with ECG of 09-FEB-2019 12:43, (Unconfirmed) Inferior infarct is now present Questionable change in initial forces of Anteroseptal leads Unconfirmed Result
--- NOTE | 2019-03-08 07:07 | Diag Imaging Result Doc PS360 ---
EXAM: CHEST-1 VIEW 03/08/2019 HISTORY: seizure/copd TECHNIQUE: AP portable at 0352 COMMENT: The inspiration is slightly less optimal than on 02/09/2019. There is increased perihilar interstitial opacity. IMPRESSION: Poor inspiration. Questionable interstitial pulmonary edema. Electronically signed by Chidi Morris 03/08/2019 7:05 AM
[2019-03-08] MEDS ORDERED: NS 1,000 ML IV SCH (08:39)
--- NOTE | 2019-03-08 08:50 | Diag Imaging Result Doc PS360 ---
EXAM: CT HEAD/C-SPINE W/O CONTRAST 03/08/2019 HISTORY: trauma/seizure like activity TECHNIQUE: This exam was performed using automated exposure control, adjustment of mA or kV according to patient size, and/or use of iterative reconstruction technique. COMMENT: There is a scalp hematoma over the frontal bone. There is some mild degree of cerebral atrophy. There are periventricular white matter lucencies in both hemispheres. No mass effect or bleed is present. The calvarium is intact. There is an apparent fracture of the left nasal bone. There are mucus retention cysts in the right maxillary sinus. There are no previous studies. Cervical spine: There are degenerative changes in the anterior atlantoaxial joint. There is disc space narrowing and posterior osteophyte formation at C3-4, C4-5, C5-6, and C6-7. There is no evidence of prevertebral soft tissue swelling there is severe emphysematous change in the upper lung zones. There are nodular appearing opacities in the right apex including one near the pleura measuring in excess of 12 mm. Severe facet arthropathy is present on the left at the C2-3 level and on the right at C3-4. IMPRESSION: No evidence of acute intracranial disease. Scalp hematoma. No evidence of acute cervical spine abnormality. Degenerative disc and facet disease. COPD. Right apical pulmonary opacities. Electronically signed by Chidi Morris 03/08/2019 8:48 AM
[2019-03-08] MEDS ORDERED: CALCIUM GLUCONATE 2 GM in NS 50 ML IV ONE (09:13)
[2019-03-08] MEDS: KEPPRA 500 MG in NS 100 ML IV SCH ×2 (09:13→20:36)
[2019-03-08] MEDS: HUMULIN R SUBQ SCH ×4 (09:54→22:10)
[2019-03-08] MEDS: AZACTAM 0.5 GM in NS 50 ML IV SCH ×2 (10:16→16:38)
[2019-03-08] MEDS: POTASSIUM CHLORIDE 10 MEQ in D5 NS 1,000 ML IV SCH ×2 (10:49→22:38)
[2019-03-08 10:54] LABS: URINE SOURCE CATH
[2019-03-08 10:59] LABS: BILIRUBIN URINE NEGATIVE (NEGATIVE); BLOOD URINE MODERATE (NEGATIVE); COLOR ORANGE; GLUCOSE URINE NEGATIVE (NEGATIVE); KETONE URINE NEGATIVE (NEGATIVE); LEUKOCYTES URINE LARGE (NEGATIVE); NITRITE URINE NEGATIVE (NEGATIVE); PH URINE 6.5; PROTEIN URINE 200 mg/dL (NEGATIVE); SP GRAVITY URINE 1.014; TURBIDITY URINE TURBID (CLEAR); UROBILINOGEN URINE NORMAL (NORMAL)
[2019-03-08 11:20] LABS: UR EPITHELIAL CELLS <10 /HPF (<10); URINE BACTERIA NEGATIVE /HPF; URINE CASTS NONE SEEN; URINE RBC TNTC /HPF (<10); URINE WBC TNTC /HPF (<10); URINE YEAST NONE SEEN
--- NOTE | 2019-03-08 13:07 | PROGRESS NOTE ---
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 The patient has falls and weak spells, and a lot of bruises on the front part of the face. The patient was seen in my office last week with low calcium. The patient was postictal, given some Keppra and Ativan. Calcium and magnesium were low. I did review the CTs with Dr. jamil Morris. CT head was no acute abnormality. CT-spine was negative. No history was obtained from the patient in the ICU; she is sleeping. PAST MEDICAL HISTORY: Reviewed. PAST SURGICAL HISTORY: Reviewed. MEDICINES: Reviewed. ALLERGIES: Penicillin. PHYSICAL EXAMINATION: Vitals: Temperature is 97 degrees, tachycardic, blood pressure is low. HEENT: Pupils equal and reactive to light. Extensive bruising on the front part of the face noted. Chest: Some rhonchi. Heart: Tachycardic. Abdomen: Soft. Nontender. No peripheral edema. INVESTIGATIONS: CBC: White cell count 5.6, hematocrit 25.9, platelets 263,000. Sodium 137, potassium 4.1, BUN 24, creatinine 2.0. Calcium 5.2. Magnesium 0.3. Urinalysis is positive for infection. CT head and C-spine were reviewed, no acute abnormality. ASSESSMENT AND PLAN: 1. Altered mental status due to seizures and judicious use of Ativan. Seizure precautions. 2. Seizures due to hypocalcemia due to hypomagnesemia. Plan of care is to replace the calcium gluconate and magnesium. 3. EKG. No prolonged QT interval. 4. Hypotension, D5 half-normal saline 80 mL/h. 5. Anemia, transfusion of 1 unit of packed RBCs. 6. 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 Recently had a stent placed retrograde, and if still has a problem consider antegrade nephrostomy tube down the line before she goes to dialysis. 7. Absence of right kidney. 8. Diabetes. Off the medication. 9. Hypertension. Off the medication. 10. Aspiration pneumonia. We will give a jet neb IV q.8h. 11. Repeat the labs at 4 o'clock as well as in the morning. 12. Discussed the plan of care with the family. 13. We will closely monitor. LEVEL OF DOCUMENTATION: 35 minutes. cc: Bin Galarza MD MTDD
[2019-03-08] MEDS ORDERED: BLISTEX MEDICATED BERRY LIP BALM TOP PRN (15:26)
[2019-03-08 16:25] LABS: CALCIUM 5.9 mg/dL (8.8-10.2); CREATININE 1.7 mg/dL (0.5-0.9); MAGNESIUM 1.6 mg/dL (1.5-2.7); POTASSIUM 3.7 mmol/L (3.5-5.1)
[2019-03-08] MEDS ORDERED: CALCIUM GLUCONATE 2 GM in NS 100 ML IV ONE ×2 (16:31→22:13)
[2019-03-08] MEDS: DUONEB (A & A) INH PRN ×2 (16:33→23:30)
--- NOTE | 2019-03-08 17:32 | EKG Report ---
Test Performed on : 03/08/2019 4:24:08 PM Test Reason : chest pain Blood Pressure : / mmHG Vent. Rate : 090 BPM Atrial Rate : 090 BPM P-R Int : 112 ms QRS Dur : 086 ms QT Int : 418 ms P-R-T Axes : 062 009 138 degrees QTc Int : 511 ms Normal sinus rhythm. with sinus arrhythmia. Low voltage QRS Cannot rule out Inferior infarct , age undetermined T wave abnormality, consider anterolateral ischemia Prolonged QT Abnormal ECG No previous ECGs available Confirmed by Dinah GREEN, Albert Valverde ([id number]) on 03/09/2019 8:22:36 AM
[2019-03-08 22:10] LABS: CALCIUM 6.3 mg/dL (8.8-10.2); CREATININE 1.6 mg/dL (0.5-0.9)
[2019-03-09] MEDS: AZACTAM 0.5 GM in NS 50 ML IV SCH ×3 (01:09→17:08)
[2019-03-09] MEDS: DUONEB (A & A) INH PRN ×5 (03:43→19:42)
[2019-03-09] MEDS: HUMULIN R SUBQ SCH ×4 (06:24→20:41)
[2019-03-09 06:32] LABS: BASO# 0.02 X1000 (0.0-0.2); BASO% 0.7 % (0.0-0.8); EOS# 0.03 X1000 (0.0-0.7); HEMATOCRIT 26.8 % (37.0-47.0); HEMOGLOBIN 8.7 g/dL (12.0-16.0); IMM GRAN# 0.02 X1000 (0.0-0.04); IMM GRAN% 0.7 % (0.0-0.5); LYMPH# 0.47 X1000 (1.2-3.4); LYMPH% 15.6 % (20.5-51.1); MCH 29.7 PG (27-31); MCHC 32.5 g/dL (33-37); MCV 91.5 FL (81-99); MONO# 0.27 X1000 (0.11-0.59); MPV 10.4 FL (7.4-10.4); PLT 211 X1000 (130-400); RBC 2.93 XMIL (4.2-5.4); RDW 15.8 % (11.5-14.5); WBC 3.01 X1000 (4.8-10.8)
[2019-03-09 06:53] LABS: CALCIUM 7.3 mg/dL (8.8-10.2); CREATININE 1.5 mg/dL (0.5-0.9); MAGNESIUM 1.4 mg/dL (1.5-2.7); POTASSIUM 4.1 mmol/L (3.5-5.1)
[2019-03-09] MEDS ORDERED: MAGNESIUM SULFATE 2 GM/S.W.I. 2 GM/50 ML IVPB IV ONE (08:28)
[2019-03-09] MEDS ORDERED: CALCIUM GLUCONATE 2 GM in NS 50 ML IV ONE (08:29)
[2019-03-09] MEDS ORDERED: CALCIUM GLUCONATE 2 GM in NS 100 ML IV ONE ×2 (08:41→16:00)
[2019-03-09] MEDS: ROCALTROL PO SCH (08:54)
[2019-03-09] MEDS: POTASSIUM CHLORIDE 10 MEQ in D5 NS 1,000 ML IV SCH ×2 (10:45→23:03)
[2019-03-09] MEDS: KEPPRA 500 MG in NS 100 ML IV SCH ×2 (11:24→20:41)
[2019-03-09] MEDS ORDERED: NS 500 ML IV ONE (12:04)
--- NOTE | 2019-03-09 14:10 | PROGRESS NOTE ---
DATE: 03/08/2019 SUBJECTIVE: The patient is awake, postictal. States improving. Extensive bruises. Eating well. Did receive a unit of blood. Cho urine was clearing up. No focal symptoms. PHYSICAL EXAMINATION: General: Temperature is 98 degrees, tachycardic. Vital: Stable. HEENT: Extensive bruising noted. Neck: Supple. Chest: Bilateral air entry. Heart: Sounds are regular. Belly is soft, nontender. Cho was placed. INVESTIGATIONS: CBC: White cell count 3, hematocrit 26.8, platelets 211,000. Sodium 140, potassium 4.1, chloride 110, BUN 19, creatinine 1.5, glucose 193, calcium 7.3. Magnesium is 1.4. Vitamin D is low. Urine cultures gram-positive cocci. ASSESSMENT AND PLAN: 1. Seizure due to hypocalcemia. Continue calcitriol and calcium supplements. 2. Urinary tract infection with gram-positive cocci. We will follow up. 3. Possible aspiration bronchitis on IV aztreonam. 4. Acute kidney injury due to postobstructive from the ureterovesical obstruction status post stent. Continue IV hydration. 5. Anemia. Transfusion of 1 unit of packed RBCs. 6. Vitamin D deficiency. Continue on calcitriol. Os-Russ by mouth. 7. Hypomagnesemia. Replace the magnesium. 8. Seizure disorder due to hypocalcemia. No need for Ativan or Keppra. 9. Vulva cancer with pain. We will use the lidocaine with hydrocortisone cream and will check the labs in the morning. LEVEL OF DOCUMENTATION: 25 minutes. cc: Bin Galarza MD
[2019-03-09] MEDS ORDERED: MAGNESIUM SULFATE 1 GM/D5W 1 GM/100 ML IVPB IV ONE (16:00)
[2019-03-09] MEDS: ZOFRAN IV PRN (18:19)
[2019-03-09] MEDS: OSCAL 500 + D PO SCH (20:47)
[2019-03-09] MEDS ORDERED: HALL'S COUGH LOZENGE MT PRN (23:51)
[2019-03-10] MEDS: AZACTAM 0.5 GM in NS 50 ML IV SCH ×3 (01:05→18:01)
[2019-03-10] MEDS: HUMULIN R SUBQ SCH ×4 (06:07→20:07)
[2019-03-10 07:08] LABS: BASO# 0.01 X1000 (0.0-0.2); BASO% 0.2 % (0.0-0.8); CALCIUM 8.3 mg/dL (8.8-10.2); CREATININE 1.2 mg/dL (0.5-0.9); EOS# 0.04 X1000 (0.0-0.7); EOS% 0.8 % (0.0-10.0); HEMATOCRIT 35.2 % (37.0-47.0); HEMOGLOBIN 11.4 g/dL (12.0-16.0); IMM GRAN# 0.03 X1000 (0.0-0.04); IMM GRAN% 0.6 % (0.0-0.5); LYMPH# 0.45 X1000 (1.2-3.4); LYMPH% 9.3 % (20.5-51.1); MAGNESIUM 1.8 mg/dL (1.5-2.7); MCH 29.2 PG (27-31); MCHC 32.4 g/dL (33-37); MCV 90.3 FL (81-99); MONO# 0.44 X1000 (0.11-0.59); MONO% 9.1 % (1.7-9.3); MPV 10.5 FL (7.4-10.4); NEUT# 3.86 X1000 (1.4-6.5); PHOSPHORUS 1.7 mg/dL (2.7-4.5); PLT 219 X1000 (130-400); POTASSIUM 4.6 mmol/L (3.5-5.1); RDW 15.8 % (11.5-14.5); WBC 4.83 X1000 (4.8-10.8)
[2019-03-10] MEDS: DUONEB (A & A) INH PRN ×3 (07:20→22:57)
[2019-03-10] MEDS ORDERED: CALCIUM GLUCONATE 1 GM in NS 50 ML IV ONE (07:55)
[2019-03-10] MEDS ORDERED: POTASSIUM PHOSPHATE 30 MEQ in NS 250 ML IV ONE (07:55)
[2019-03-10] MEDS ORDERED: MAGNESIUM SULFATE 2 GM/S.W.I. 2 GM/50 ML IVPB IV ONE (07:55)
[2019-03-10] MEDS: ROCALTROL PO SCH (08:30)
[2019-03-10] MEDS: OSCAL 500 + D PO SCH ×2 (08:30→21:22)
[2019-03-10] MEDS: KEPPRA 500 MG in NS 100 ML IV SCH ×2 (10:44→21:22)
[2019-03-10] MEDS ORDERED: S2 RACEPINEPHRINE 2.25% INH ONE (11:21)
[2019-03-10] MEDS ORDERED: NS NEB INH SCH (11:30)
[2019-03-10] MEDS ORDERED: ATIVAN IV ONE (11:36)
--- NOTE | 2019-03-10 11:48 | Diag Imaging Result Doc PS360 ---
EXAM: CHEST-PORTABLE HISTORY: SOB TECHNIQUE: Chest single view COMPARISON: 03/08/2019 FINDINGS: There are diffuse bilateral infiltrates. These are more pronounced than on the prior study. No cardiomegaly. Trace left pleural fluid. IMPRESSION: Worsening pulmonary edema Electronically signed by Jon Sarabia 03/10/2019 11:46 AM
[2019-03-10 11:55] LABS: ALLEN TEST YES; BE -11.5 mmoll (-3.0-3.0); BLOOD TYPE ARTERIAL; HCO3-(ACT) 15.9 mmoll (20.0-26.0); O2(CT) 19.5 mL/dL (15.0-23.0); O2HB 96.6 % (95.0-99.0); PCO2(98.6) 32 mmHg (35-45); PO2(98.6) 183 mmHg (60-100); SAMPLE BLOOD; SAO2 98.5 % (95.0-100.0); THB 14.1 g/dL (11.5-17.4); pH(98.6) 7.26 (7.35-7.45)
[2019-03-10 11:56] LABS: MODALITY PRB
[2019-03-10] MEDS ORDERED: LASIX IV ONE ×2 (12:00→17:54)
[2019-03-10] MEDS ORDERED: LASIX ONE (12:01)
[2019-03-10] MEDS: POTASSIUM CHLORIDE 10 MEQ in D5 NS 1,000 ML IV SCH (12:30)
--- NOTE | 2019-03-10 19:20 | PROGRESS NOTE ---
DATE: 03/10/2019 SUBJECTIVE: The patient continues to improve. This morning, she went to acute respiratory distress due to volume overload with pulmonary edema. Patient was on BiPAP with restraints and IV Lasix is improving. I have seen the patient twice this morning in the afternoon. Family was at bedside. Slowly wean off BiPAP and oxygen right now, 3 L nasal cannula 98%, tachycardic. Vitals are stable chest is clear. Heart sounds are regular. Belly is soft, nontender. No edema. LABS: CBC: White cell count 4.8 and hematocrit 35, platelets 219,000. ABG: Shows a pH is 7.26, pCO2 of 32, PO2 183 and SMA 7. Sodium 139, potassium 4.6, BUN 17, creatinine 1.2, glucose 141, phosphorus 1.7. Vitamin D is low. ASSESSMENT AND PLAN: 1. Seizure due to hypocalcemia, due to vitamin D deficiency. 2. Chronic kidney disease. Continue on calcitriol and Os-Russ b.i.d. 3. Hypomagnesemia is improving. Phosphorus is low. Replace the K-Phos. 4. Acute respiratory distress, volume overload, IV Lasix. Repeat the chest x-ray in the morning and also CBC and SMA 7. Chronic kidney disease due to post obstruction from the left kidney status post stent next urine cultures positive for Staph aureus, which is methicillin resistant. We will consider Macrodantin. Aspiration on IV aztreonam and will check the chest x-ray and CBC, SMA 7, and CK in the morning. LEVEL OF DOCUMENTATION: 35 minutes. cc: Bin Galarza MD
[2019-03-11] MEDS: AZACTAM 0.5 GM in NS 50 ML IV SCH ×3 (02:24→17:28)
[2019-03-11] MEDS: HUMULIN R SUBQ SCH ×4 (06:02→20:06)
[2019-03-11 07:03] LABS: HEMATOCRIT 36.9 % (37.0-47.0); HEMOGLOBIN 12.1 g/dL (12.0-16.0); MCH 30.2 PG (27-31); MCHC 32.8 g/dL (33-37); MPV 10.5 FL (7.4-10.4); RBC 4.01 XMIL (4.2-5.4); RDW 15.5 % (11.5-14.5); WBC 7.02 X1000 (4.8-10.8)
[2019-03-11 07:14] LABS: CALCIUM 8.1 mg/dL (8.8-10.2); CREATININE 1.4 mg/dL (0.5-0.9)
--- NOTE | 2019-03-11 07:23 | Diag Imaging Result Doc PS360 ---
EXAM: CHEST-PORTABLE 03/11/2019 HISTORY: MD ordered TECHNIQUE: AP portable at 0526 COMMENT: Compared to 03/10/2019 there has been a substantial improvement in the opacities bilaterally particularly in the right lower lobe. IMPRESSION: Improved pulmonary edema plus minus pneumonia. Electronically signed by Chidi Morris 03/11/2019 7:21 AM
[2019-03-11] MEDS: DUONEB (A & A) INH PRN ×5 (07:24→23:04)
[2019-03-11] MEDS ORDERED: CALMOSEPTINE OINTMENT TOP ONE (08:22)
[2019-03-11] MEDS: OSCAL 500 + D PO SCH ×2 (08:59→20:00)
[2019-03-11] MEDS: MACROBID PO SCH (08:59)
[2019-03-11] MEDS: ROCALTROL PO SCH (08:59)
[2019-03-11] MEDS: KEPPRA 500 MG in NS 100 ML IV SCH ×2 (08:59→20:06)
[2019-03-11] MEDS ORDERED: LASIX IV ONE (20:39)
--- NOTE | 2019-03-12 00:41 | PROGRESS NOTE ---
DATE: 03/11/2019 SUBJECTIVE: The patient is doing better. The respiratory status improved after IV Lasix. REVIEW OF SYSTEMS: None reported. PHYSICAL EXAMINATION: Vital Signs: Temperature is 98 degrees. She is slightly tachycardic. Vitals are stable, 97%. HEENT: Within normal limits with bruising noted. Lungs: Decreased crackles. Heart: Tachycardic. Abdomen: Belly is soft, nontender. Genitourinary: Cho was placed. LABORATORY INVESTIGATIONS: CBC: White cell count is 7, hematocrit 36.9, platelets 208,000. Sodium 134, potassium 5, BUN 21, creatinine 1.4, glucose 116, magnesium normal. ASSESSMENT AND PLAN: 1. Seizure disorder due to hypocalcemia due to hypomagnesemia and vitamin D deficiency. Continue on replacement therapy calcium and calcitriol. 2. Acute kidney injury is improving. 3. CHF due to volume overload. Decrease IV fluids. 4. Advance the diet. 5. Remove the Cho in the morning. All the electrolytes are stable. If stable will go to the step-down. 6. Ativan for anxiety. 7. Vulvar cancer status post radiation. We will use the lidocaine and the steroid cream. We will follow up. LEVEL OF DOCUMENTATION: 25 minutes. cc: Bin Galarza MD
[2019-03-12] MEDS: AZACTAM 0.5 GM in NS 50 ML IV SCH ×2 (01:16→08:29)
[2019-03-12] MEDS: DUONEB (A & A) INH PRN ×2 (03:16→08:12)
[2019-03-12] MEDS: HUMULIN R SUBQ SCH ×4 (06:26→20:55)
[2019-03-12] MEDS: MACROBID PO SCH (08:28)
[2019-03-12] MEDS: OSCAL 500 + D PO SCH ×2 (08:28→20:57)
[2019-03-12] MEDS: ROCALTROL PO SCH (08:28)
--- NOTE | 2019-03-12 08:43 | Diag Imaging Result Doc PS360 ---
EXAM: CHEST-PORTABLE 03/12/2019 HISTORY: pulmonary edema TECHNIQUE: AP portable at 0832 COMMENT: There is interstitial pulmonary edema which was also present on 03/11/2019. This has not changed appreciably. There is definite improvement with regard to the right lower lobe since 03/10/2019 however. IMPRESSION: Pulmonary edema. Electronically signed by Chidi Morris 03/12/2019 8:41 AM
[2019-03-13] MEDS: ZOFRAN IV PRN ×3 (01:00→18:33)
--- NOTE | 2019-03-13 03:25 | PROGRESS NOTE ---
DATE: 03/12/2019 SUBJECTIVE: The patient is getting better. Oxygenation is improving. No chest pain, shortness of breath. Cho was still placed. PHYSICAL EXAMINATION: Vital signs: Temperature is 98 degrees, slightly tachycardic. Vitals are stable. HEENT: Within normal limits. Neck: Supple. Lungs: Decreased wheezing and crackles. Heart: Sounds are regular. Abdomen: Belly is soft, nontender. Neurologic: No obvious deficits. INVESTIGATIONS: None reported. Chest x-ray, still some vascular congestion noted. ASSESSMENT AND PLAN: 1. Seizure due to hypocalcemia. 2. Continue Os-Russ, vitamin D. 3. Chronic kidney disease, stable. 4. Staphylococcus aureus in the urine. Discontinue Cho. Continue with Macrobid. 5. Discontinue Keppra. 6. Volume overload, respiratory failure, improving. 7. Transfer to regular floor. Out of the bed with physical therapy. Check the labs in the morning. Please see the transfer orders. LEVEL OF DOCUMENTATION: 25 minutes. cc: Bin Galarza MD
[2019-03-13] MEDS: HUMULIN R SUBQ SCH ×4 (06:12→21:06)
[2019-03-13] MEDS: OSCAL 500 + D PO SCH ×2 (08:29→21:06)
[2019-03-13] MEDS: ROCALTROL PO SCH (08:29)
[2019-03-13] MEDS: MACROBID PO SCH (08:29)
[2019-03-13] MEDS: COREG PO SCH ×2 (08:29→21:06)
[2019-03-13 08:35] LABS: HEMATOCRIT 36.9 % (37.0-47.0); HEMOGLOBIN 12.1 g/dL (12.0-16.0); MCH 30.1 PG (27-31); MCHC 32.8 g/dL (33-37); MCV 91.8 FL (81-99); MPV 10.8 FL (7.4-10.4); RBC 4.02 XMIL (4.2-5.4); RDW 14.8 % (11.5-14.5); WBC 8.45 X1000 (4.8-10.8)
[2019-03-13 09:12] LABS: CALCIUM 8.8 mg/dL (8.8-10.2); CREATININE 1.2 mg/dL (0.5-0.9); MAGNESIUM 1.4 mg/dL (1.5-2.7); POTASSIUM 4.6 mmol/L (3.5-5.1)
[2019-03-13 09:35] LABS: FREE T4 0.96 ng/dL (0.93-1.70); TSH 0.95 uIUmL (0.27-4.20)
[2019-03-13] MEDS: ATIVAN IV PRN ×2 (12:44→21:18)
[2019-03-13] MEDS: IMODIUM PO PRN (19:21)
[2019-03-13] MEDS ORDERED: MAGNESIUM SULFATE 2 GM/S.W.I. 2 GM/50 ML IVPB IV ONE ×2 (20:40→23:00)
--- NOTE | 2019-03-13 22:49 | PROGRESS NOTE ---
DATE: 03/13/2019 SUBJECTIVE: The patient had some diarrhea. Heart rate is running high. PHYSICAL EXAMINATION: Temperature is 97 degrees, heart rate is 112. Vitals are stable. Bruises on the face is improving.Chest: Bilateral air entry on room air 97%. Abdomen: Belly is soft, nontender. INVESTIGATIONS: CBC: White cell count 8.4, hematocrit 36.9, platelets 226,000. Sodium 131, potassium 4.6, BUN 33, creatinine 1.2, glucose is 138, magnesium 1.4. Thyroid function tests were normal. ASSESSMENT AND PLAN: 1. Seizures due to hypocalcemia. 2. Continue Os-Russ calcitriol. 3. Hypomagnesemia. Continue magnesium sulfate. 4. Volume overload is improving. 5. Tachycardia. Just low dose of Coreg. 6. Normal thyroid function tests. 7. Diarrhea. Ruled out Clostridium difficile. Continue Imodium as needed. 8. Methicillin-resistant Staphylococcus aureus and urinary tract infection on Macrobid. 9. The patient is anxious to go home and we will follow up. LEVEL OF DOCUMENTATION: 35 minutes. cc: Bin Galarza MD
[2019-03-14] MEDS: HUMULIN R SUBQ SCH ×4 (06:02→20:23)
[2019-03-14] MEDS: OSCAL 500 + D PO SCH ×2 (09:34→20:25)
[2019-03-14] MEDS: COREG PO SCH ×2 (09:34→20:25)
[2019-03-14] MEDS: MACROBID PO SCH (09:34)
[2019-03-14] MEDS: ROCALTROL PO SCH (09:34)
[2019-03-14] MEDS ORDERED: CALMOSEPTINE OINTMENT TOP PRN (16:17)
[2019-03-14] MEDS: ZOFRAN IV PRN ×2 (16:22→20:25)
--- NOTE | 2019-03-14 19:10 | PROGRESS NOTE ---
DATE: 03/14/2019 SUBJECTIVE: Patient complains of diarrhea. Stool samples were negative. Still weak. Magnesium was low which was replaced. EXAMINATION: Vital Signs: Temperature is 98 degrees. Blood pressure is low. HEENT: Pupils are equal. Neck: Supple. Chest: Bilateral air entry. Heart: Sounds are regular. Abdomen: Belly is soft, nontender. Cho was discontinued. LABS: None reported. Stool cultures negative for Clostridium difficile. ASSESSMENT AND PLAN: 1. Seizures, due to hypocalcemia. 2. Hypocalcemia, due to hypomagnesemia. 3. Continue on magnesium replacement; yesterday was 1.4. 4. Diarrhea. Ruled out Clostridium difficile. Continue on Imodium as needed. 5. Methicillin resistant Staphylococcus aureus in the urine, on Macrodantin. 6. Patient stopped taking all the diabetes and hypertension medicines and chronic kidney disease due to post obstructive uropathy on the left side. We will recheck the labs in the morning. The patient is anxious to go home. Continue to monitor electrolytes and make sure she is stable. 7. Volume overload is improving and tachycardic. Normal thyroid function tests. Started on Coreg low doses and out of the bed with ambulation over the weekend, and discharge on Sunday. LEVEL OF DOCUMENTATION: 25 minutes. cc: Bin Galarza MD
[2019-03-14] MEDS: ATIVAN IV PRN (22:25)
[2019-03-15] MEDS: HUMULIN R SUBQ SCH ×4 (06:04→20:49)
[2019-03-15] MEDS: MACROBID PO SCH (09:30)
[2019-03-15] MEDS: OSCAL 500 + D PO SCH ×2 (09:30→20:53)
[2019-03-15] MEDS: ROCALTROL PO SCH (09:30)
[2019-03-15] MEDS: COREG PO SCH ×2 (09:31→20:53)
[2019-03-15] MEDS: ATIVAN IV PRN ×3 (09:37→22:14)
--- NOTE | 2019-03-15 12:22 | PROGRESS NOTE ---
DATE: 03/15/2019 SUBJECTIVE: A 69-year-old white female patient admitted status post seizure, which was new onset. The patient was postictal. Patient had multiple bruise brewer on her face. The patient does have complex medical history, including multiple medical problems. The patient seems to be getting better. She denied any headache. No recent seizure-type episode. She denied any chest pain or palpitations. No high-grade fever or chills. No dysuria or hematuria. No blood or mucus in the stool. Oral intake is fair to poor. Her admission history, physical noted. PAST MEDICAL HISTORY: Significant for vaginal neoplasm, Crohn disease, COPD, hyperlipidemia, IDDM, hypertension, solitary kidney. The patient had hysterectomy, cholecystectomy, bladder surgery, tonsillectomy and cystoscopy. OBJECTIVE: Vital signs: Blood pressure 109/70, pulse 89, respirations 16, temperature 97.9 degrees. Skin: Patient does have old bruise jose carlos on the face. HEENT: Pupils reacting to light. No pharyngeal congestion. Neck: Supple. No JVD. Lungs: Bilateral good air entry present. CVS: S1 and S2 heard. Abdomen: Soft, globular. Bowel sounds present. Extremities: No cyanosis, clubbing. No acute DVT. 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 Able to move all 4 limbs. LAB DATA: Last done on March 13 showed hemoglobin 12.1, hematocrit 36.9. BUN was 23, creatinine 1.2. Her magnesium was 1.4. ASSESSMENT: 1. The patient's problems include new onset seizure. It was attributed to hypocalcemia. 2. Patient does have hypomagnesemia. The patient is on magnesium supplement. I am going to recheck blood work tomorrow. 3. Other problems include diarrhea. 4. Clostridium difficile toxin negative, but patient does have multiple white blood counts. 5. Urinary tract infection due to methicillin-resistant Staphylococcus aureus. 6. Chronic kidney disease. 7. The patient does have generalized weakness. PLAN: Overall plan discussed at length with the patient. The patient understood and agreed. I am going to start the patient empirically on Flagyl because of possible colitis. cc: MD Bin Geiger MD
[2019-03-15] MEDS: FLAGYL 500 MG/NS 500 MG/100 ML IVPB IV SCH ×2 (14:42→18:36)
[2019-03-16] MEDS: FLAGYL 500 MG/NS 500 MG/100 ML IVPB IV SCH ×3 (02:13→19:21)
[2019-03-16] MEDS: HUMULIN R SUBQ SCH ×3 (06:01→20:33)
[2019-03-16 07:55] LABS: HEMATOCRIT 34.7 % (37.0-47.0); HEMOGLOBIN 11.1 g/dL (12.0-16.0); MCH 29.6 PG (27-31); MCV 92.5 FL (81-99); MPV 10.8 FL (7.4-10.4); RBC 3.75 XMIL (4.2-5.4); RDW 14.1 % (11.5-14.5); WBC 4.66 X1000 (4.8-10.8)
[2019-03-16 08:20] LABS: ALB/GLOB RATIO 0.6; ALBUMIN 2.1 g/dL (3.5-5.0); CREATININE 1.5 mg/dL (0.5-0.9); MAGNESIUM 1.8 mg/dL (1.5-2.7); POTASSIUM 4.6 mmol/L (3.5-5.1); TOTAL BILIRUBIN 0.32 mg/dL (0.20-1.00); TOTAL PROTEIN 5.7 g/dL (6.3-8.3)
[2019-03-16] MEDS: MACROBID PO SCH (09:38)
[2019-03-16] MEDS: ROCALTROL PO SCH (09:38)
[2019-03-16] MEDS: COREG PO SCH ×2 (09:38→20:47)
[2019-03-16] MEDS: ATIVAN IV PRN ×3 (09:38→23:19)
[2019-03-16] MEDS: OSCAL 500 + D PO SCH ×2 (09:39→20:47)
--- NOTE | 2019-03-16 12:19 | PROGRESS NOTE ---
DATE: 03/16/2019 SUBJECTIVE: Ms. Holland is doing better. The patient claimed her diarrhea seems to be improving. No high-grade fever or chills. No nausea or vomiting. Patient admitted with electrolyte abnormality, seizure, and fall. The patient does have multiple medical problems including Crohn's disease, COPD, hyperlipidemia, diabetes, hypertension. OBJECTIVE: Her vital signs noted. Neck is supple. No JVD. Lungs: Bibasilar crepitations. Heart: S1 and S2 heard. A 2/6 systolic murmur at the apex. Abdomen: Soft. No distention. Bowel sounds present. Extremities: No cyanosis, clubbing. No acute DVT. 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 Able to move all 4 limbs. Laboratory Data: Done today, WBC count 4.66, hemoglobin 11.1, hematocrit 34.7, platelets 204,000. Electrolytes: BUN 28, creatinine 1.5. CONSIDERATION: 1. Diarrhea. I entertained the possibility of colitis because of large amount of WBC in the stool. Started patient on Flagyl. Clinically, patient seems to be doing better. 2. Electrolyte abnormalities with hypokalemia and hypomagnesemia, improved. 3. Hypertension, doing well with current treatment. 4. Hypomagnesemia, improved. 5. History of fall. PLAN: Overall, patient is doing better. Labs and medication noted. We will continue current treatment. If clinical condition permits, we will plan discharging patient home tomorrow. cc: MD Bin Geiger MD
[2019-03-17] MEDS: FLAGYL 500 MG/NS 500 MG/100 ML IVPB IV SCH ×3 (03:25→18:23)
[2019-03-17] MEDS: HUMULIN R SUBQ SCH ×5 (06:01→20:07)
[2019-03-17 08:06] LABS: CALCIUM 8.9 mg/dL (8.8-10.2); CREATININE 1.3 mg/dL (0.5-0.9); MAGNESIUM 1.6 mg/dL (1.5-2.7); POTASSIUM 4.4 mmol/L (3.5-5.1)
[2019-03-17] MEDS: COREG PO SCH ×2 (09:10→20:08)
[2019-03-17] MEDS: ATIVAN IV PRN ×3 (09:11→23:18)
[2019-03-17] MEDS: MACROBID PO SCH (09:11)
[2019-03-17] MEDS: ROCALTROL PO SCH (09:11)
[2019-03-17] MEDS: OSCAL 500 + D PO SCH ×2 (09:11→20:08)
[2019-03-18] MEDS: FLAGYL 500 MG/NS 500 MG/100 ML IVPB IV SCH (02:26)
--- NOTE | 2019-03-18 05:38 | PROGRESS NOTE ---
DATE: 03/17/2019 SUBJECTIVE: The patient is doing a little better, still feeble. Diarrhea is better. REVIEW OF SYSTEMS: None reported. OBJECTIVE: Skin: Bruises on the skin is slowly improving. Neck: Supple. Chest: Clear on room air 100%. Abdomen: Belly is soft and nontender. Extremities: No edema, cyanosis, or clubbing. INVESTIGATIONS: Sodium 132, potassium 4.4, BUN 24, creatinine 1.3, glucose 115, magnesium 1.6, and calcium 8.9. ASSESSMENT AND PLAN: 1. Chronic kidney failure stable. 2. Status post stent in the left kidney. 3. MRSA in urine on Macrobid. 4. Seizure due to hypocalcemia. Continue on calcium, magnesium, and vitamin D. 5. Volume overload, improving. 6. Diarrhea is better. 7. Tachycardia is improving on Coreg. 8. If she is stable, we will discharge in the morning. LEVEL OF DOCUMENTATION: 25 minutes. cc: Bin Galarza MD MTDD
[2019-03-18] MEDS: HUMULIN R SUBQ SCH ×3 (06:41→17:24)
[2019-03-18] MEDS: FLAGYL PO SCH ×2 (09:11→17:57)
[2019-03-18] MEDS: MACROBID PO SCH (09:11)
[2019-03-18] MEDS: OSCAL 500 + D PO SCH ×2 (09:11→20:56)
[2019-03-18] MEDS: ROCALTROL PO SCH (09:11)
[2019-03-18] MEDS: CULTURELLE PO SCH (09:11)
[2019-03-18] MEDS: COREG PO SCH ×2 (09:11→20:56)
[2019-03-18] MEDS: ATIVAN IV PRN ×2 (11:14→21:05)
[2019-03-18] MEDS: IMODIUM PO PRN (11:14)
[2019-03-18] MEDS: ZOFRAN IV PRN (21:00)
--- NOTE | 2019-03-18 21:01 | PROGRESS NOTE ---
DATE: 03/18/2019 SUBJECTIVE: The patient is still feeble and not able to get out of the bed, and had 3 loose bowel movements. OBJECTIVE: On exam, temperature is 98 degrees. Vital signs are stable. HEENT exam: Bruising is improving over the face. Neck is supple. Chest is clear. Heart sounds are regular. Not tachycardic. Belly is soft, nontender. LABORATORY DATA: Microbiology: Stool WBC was many. ASSESSMENT AND PLAN: 1. Diarrhea, ruled out Clostridium difficile. Change to Flagyl by mouth along with Imodium and probiotics. 2. Methicillin-resistant Staphylococcus aureus in the urine, on doxycycline. 3. Hypocalcemia, consistent with calcium and vitamin D. 4. Tachycardia. Coreg is working. Stable. 5. We will continue to hold other blood pressure medicine and diabetes medicine. If she is stable, we will discharge in the morning. Level of documentation is 25 minutes. cc: Bin Galarza MD
[2019-03-19] MEDS: HUMULIN R SUBQ SCH ×2 (00:16→07:19)
[2019-03-19] MEDS: FLAGYL PO SCH ×2 (03:05→09:25)
[2019-03-19 08:16] VITALS: BP 129/72
[2019-03-19] MEDS: ROCALTROL PO SCH (09:24)
[2019-03-19] MEDS: MACROBID PO SCH (09:24)
[2019-03-19] MEDS: OSCAL 500 + D PO SCH (09:25)
[2019-03-19] MEDS: CULTURELLE PO SCH (09:25)
[2019-03-19] MEDS: COREG PO SCH (09:25)
[2019-03-19] MEDS ORDERED: FLU VACCINE IM ONE (09:46)
[2019-03-19] MEDS: ZOFRAN IV PRN (10:25)
--- NOTE | 2019-03-21 06:08 | DISCHARGE SUMMARY ---
ADMISSION DATE: 03/08/2019 DISCHARGE DATE: 03/19/2019 DISCHARGING DIAGNOSES: 1. Altered mental status due to seizure. 2. Seizures due to hypocalcemia. 3. Hypocalcemia due to chronic kidney disease and hypomagnesemia. 4. Vitamin D deficiency due to chronic kidney disease. 5. 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 6. Absence of right kidney. 7. History of Crohn's disease in remission. 8. Type 2 diabetes off medication. 9. Hypertension off medications. 10. Chronic spondylolisthesis L5-S1. 11. Volume overload causing congestive heart failure. 12. MRSA staph infection in the urine. 13. Nonspecific diarrhea. PROCEDURE: Transfusion of 2 units of packed RBC's. BRIEF HISTORY: Please see the H and P by Dr. Vel Otero. In brief, she is a 69-year-old white female who came into the hospital with fatigue, weakness, and frequent falls associated with altered mental status and seizures. The patient was postictal. The patient was admitted in ICU in a guarded condition. CLINICAL COURSE FOLLOWS: 1. Altered mental status due to seizure. Patient never had a prior history of seizures. CT scan of the head that was negative. No signs of stroke. The seizure was due to hypocalcemia. Calcium level of 6.4. 2. Hypocalcemia due to chronic kidney disease. 3. Hypomagnesemia. 4. Vitamin D deficiency. The patient was given IV calcium gluconate, IV magnesium and calcitriol along with vitamin D. Follow up calcium and magnesium levels were normal. She never had any seizures. The patient was advised not to stop calcium along with vitamin D around the clock. 5. The patient also had a fall with multiple bruises on the head. No intracranial hemorrhage injury noted. 6. Anemia requiring 2 units of packed RBCs. 7. The patient developed congestive heart failure due to volume overload requiring BiPAP and IV Lasix. Subsequently, the patient was a lot better. 8. The patient started MRSA staph infection for which doxycycline was given. 9. Patient developed some diarrhea. Further workup ruled out for Clostridium difficile. The patient was given probiotics, Flagyl and Imodium. 10. Patient is deconditioning, and at this time she has a full code. Willing to go for dialysis. LABORATORY: At the time of discharge, CBC showed white cell count 4.6, hematocrit 34, and platelets 204,000. Sodium 132, potassium 4.4, BUN 24, creatinine 1.3, calcium 8.9, and magnesium 1.6. DISCHARGE INSTRUCTIONS: The patient was discharged home in a stable condition. Flu vaccine 03/19/2019. Protonix 40 mg daily, fenofibrate 140 daily, Lexapro 20 daily, and multivitamin 1 tablet daily. I discontinued diabetic medicine, which includes Lantus and Januvia. Ventolin HFA as needed. Breo 1 puff daily. Since the Breo, the patient is not able to get it. We can use the Symbicort or Breo as needed. Citracal with vitamin D 1 tablet daily. Flagyl 250 daily, calcium carbonate 1 tablet p.o. b.i.d., calcitriol 0.25 mcg daily, and Culturelle 1 tablet daily. Loperamide as needed. Follow up in my office and continue lidocaine with hydrocortisone cream for pain in the vagina for underlying radiation burn. Continue to monitor the stent by Dr. Freddie Fox. Follow up in my office in 10 days. cc: MD Freddie Black MD
== END 2019-03-19 11:25 | disposition home health service (06) | DRG 640 ==
LOC: SUPCPDRO → ED 02:58 → ICU 06:30 → SUATTDRO 06:30 → 3N 03-12 11:22
PROVIDERS: ADMIT Internal Medicine; ATTEND Internal Medicine

== ENCOUNTER 2019-05-04 17:10 | Inpatient (IN) ==
[2019-05-04 18:14] LABS: BASO# 0.01 X1000 (0.0-0.2); BASO% 0.3 % (0.0-0.8); EOS# 0.06 X1000 (0.0-0.7); EOS% 1.6 % (0.0-10.0); HEMATOCRIT 24.9 % (37.0-47.0); HEMOGLOBIN 7.7 g/dL (12.0-16.0); IMM GRAN# 0.05 X1000 (0.0-0.04); IMM GRAN% 1.3 % (0.0-0.5); LYMPH# 0.62 X1000 (1.2-3.4); LYMPH% 16.4 % (20.5-51.1); MCH 32.2 PG (27-31); MCHC 30.9 g/dL (33-37); MCV 104.2 FL (81-99); MONO# 0.35 X1000 (0.11-0.59); MONO% 9.2 % (1.7-9.3); MPV 9.7 FL (7.4-10.4); NEUT% 71.2 % (42.2-75.2); PLT 273 X1000 (130-400); RBC 2.39 XMIL (4.2-5.4); RDW 17.7 % (11.5-14.5); WBC 3.79 X1000 (4.8-10.8)
--- NOTE | 2019-05-04 18:23 | Diag Imaging Result Doc PS360 ---
EXAM: CHEST-1 VIEW INDICATION: Acute renal failure TECHNIQUE: One view COMPARISON: 03/12/2019 FINDINGS: There are mild increased interstitial markings throughout both lungs suggesting mild edema. There is no discrete pleural fluid collection or pneumothorax. The cardiac silhouette is unremarkable. The central vasculature appears mildly prominent suggesting pulmonary venous congestion. IMPRESSION: Suggestion of pulmonary venous congestion and mild interstitial edema. Electronically signed by Francis Bishop 05/04/2019 6:21 PM
[2019-05-04 19:00] LABS: ALB/GLOB RATIO 0.8; ALBUMIN 2.6 g/dL (3.5-5.0); CALCIUM 8.6 mg/dL (8.8-10.2); CREATININE 1.6 mg/dL (0.5-0.9); POTASSIUM 3.9 mmol/L (3.5-5.1); TOTAL BILIRUBIN 0.17 mg/dL (0.20-1.00); TOTAL PROTEIN 5.9 g/dL (6.3-8.3)
[2019-05-04] MEDS ORDERED: MAGNESIUM SULFATE 2 GM/S.W.I. 2 GM/50 ML IVPB IV ONE (19:04)
[2019-05-04] MEDS ORDERED: VENTOLIN HFA INH PRN (19:08)
[2019-05-04] MEDS ORDERED: LASIX IV ONE (19:33)
[2019-05-04] MEDS ORDERED: NS 500 ML ONE (20:29)
--- NOTE | 2019-05-05 00:29 | HISTORY AND PHYSICAL ---
CHIEF COMPLAINT: 1. Swelling of legs right is worse than the left side. 2. Anemia. 3. Hypomagnesemia. HISTORY OF PRESENT ILLNESS: She is a 69-year-old white female. Was discharged on 03/19/2019. She had a seizure due to hypocalcemia due to hypomagnesemia. She has a chronic kidney disease with magnesium wasting. She has 1 kidney and that left kidney has a chronically obstructed with hydronephrosis. Dr. Fox is going to change the stent tomorrow. She also has significant anemia with a hemoglobin 7. Outpatient Dopplers on Sunday in my office, no DVT in the right leg. She has hypoproteinemia causing the substantial edema. Next, she needs a blood transfusion. She also needed magnesium replacement and Dr. Fox was consulted to change the stent in the left kidney. PAST MEDICAL HISTORY: 1. 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 2. Chronic hypomagnesemia. 3. Vitamin D deficiency. 4. Solitary kidney on the left side with moderate hydronephrosis with chronic distal ureteral obstruction from vaginal cancer. 5. Absence of right kidney. 6. History of Crohn's disease in remission. 7. History of diabetes, hypertension, controlled off medication. 8. Chronic spondylolisthesis L5-S1. 9. History of vaginal cancer status post radiation with chronic pain. PAST SURGICAL HISTORY: 1. Cholecystectomy. 2. Hysterectomy. 3. Tonsillectomy. 4. Multiple cystoscopies. MEDICATIONS: Protonix 40 daily, Tricor 140 daily, Lexapro 20 daily, Ventolin HFA as needed, Symbicort 1 puff b.i.d., Citracal with vitamin D daily, Rocaltrol 0.25 mcg daily, Culturelle 1 tablet daily, magnesium oxide 400 daily. 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 . Lives in [place]. History of smoking. No alcohol. FAMILY HISTORY: Father of renal cell carcinoma at 73. Mother at 74 with complication with diabetes and renal failure. HEALTH MAINTENANCE: Flu vaccine in 2019. Pneumococcal vaccine 2017. REVIEW OF SYSTEMS: HEENT: No headache. No vision problem. No earache. No sore throat. Neck: No goiter. No lymphadenopathy. No bruit. Cardiopulmonary: No chest pain, shortness of breath, PND, orthopnea. Gastrointestinal: No nausea, vomiting. Chronic lower abdominal pain. Discharge coming from the vagina. Swelling of feet and both legs. No back pain. Neurologic: No focal symptoms or weakness. PHYSICAL EXAMINATION: VITAL SIGNS: Temperature is 98 degrees, pulse is 85, blood pressure is stable. 5 feet 1 inches. 113 pounds. HEENT: Atraumatic, normocephalic. Pupils equal, react to light. Anemic. No jaundice. NECK: Supple. No lymphadenopathy. No goiter. CHEST: Clear. HEART: Heart sounds are regular. ABDOMEN: Belly is soft, nontender. Good bowel sounds. EXTREMITIES: 2+ pedal edema in both legs, right worse than the left side. INVESTIGATIONS: White cell count 3.7, hemoglobin 7, hematocrit 24, platelet count 273,000. Sodium 139, potassium 3.9, BUN 15, creatinine 1.6, magnesium 1.0, albumin 2.6. Chest x-ray stable. ASSESSMENT AND PLAN: 1. A 69-year-old white female admitted to the hospital with dependent edema due to hypoproteinemia, hypoalbuminemia. 2. Hypomagnesemia. magnesium 1.0. Replace the magnesium. Check the EKG. 3. Calcium levels are normal. Continue on calcium with vitamin D. 4. Chronic kidney disease. Dr. Fox consult. 5. Hypertension, diabetes, off medications. 6. History of vaginal cancer recurrence, status post radiation, currently stable. 7. Reconcile home medications. 8. Anemia due to chronic blood loss anemia. Continue transfusion of 2 units of packed RBC. Maintain hematocrit around 30. Hemoccult stool testing and we will follow up. 9. Discussed the plan of care with family. cc: Bin Galarza MD [facility]
[2019-05-05] MEDS: PROTONIX PO SCH ×2 (04:23→06:30)
[2019-05-05 05:27] LABS: URINE SOURCE CLEAN CATCH
[2019-05-05 05:36] LABS: BILIRUBIN URINE NEGATIVE (NEGATIVE); BLOOD URINE MODERATE (NEGATIVE); COLOR ORANGE; GLUCOSE URINE NEGATIVE (NEGATIVE); KETONE URINE NEGATIVE (NEGATIVE); LEUKOCYTES URINE LARGE (NEGATIVE); NITRITE URINE POSITIVE (NEGATIVE); PH URINE 6.5; PROTEIN URINE 70 mg/dL (NEGATIVE); SP GRAVITY URINE 1.008; TURBIDITY URINE TURBID (CLEAR); UROBILINOGEN URINE NORMAL (NORMAL)
[2019-05-05 05:41] LABS: UR EPITHELIAL CELLS <10 /HPF (<10); URINE BACTERIA NEGATIVE /HPF; URINE RBC 20-40 /HPF (<10); URINE WBC TNTC /HPF (<10)
[2019-05-05 06:06] LABS: URINE CASTS NONE SEEN; URINE CRYSTALS NONE SEEN; URINE SMALL ROUND CELLS NONE SEEN; URINE YEAST NONE SEEN
[2019-05-05] MEDS: LEVAQUIN 500 MG/D5W 500 MG/100 ML IVPB IV SCH (06:58)
--- NOTE | 2019-05-05 07:27 | EKG Report ---
Test Performed on : 05/05/2019 07:06:11 AM Test Reason : cp Blood Pressure : / mmHG Vent. Rate : 089 BPM Atrial Rate : 089 BPM P-R Int : 132 ms QRS Dur : 084 ms QT Int : 400 ms P-R-T Axes : 069 032 223 degrees QTc Int : 486 ms Normal sinus rhythm. Possible Left atrial enlargement Marked T wave abnormality, consider anterolateral ischemia Prolonged QT Abnormal ECG When compared with ECG of 08-MAR-2019 16:24, Minimal criteria for Inferior infarct are no longer present T wave inversion now evident in Inferior leads T wave inversion more evident in Anterior leads Confirmed by Geovanni GREEN, P.J.M ([id number]) on 05/05/2019 6:32:47 PM
--- NOTE | 2019-05-05 10:58 | CONSULTATION ---
DATE OF CONSULTATION: 05/05/2019 CHIEF COMPLAINT: Solitary kidney with left ureteropelvic obstruction. HISTORY OF PRESENT ILLNESS: Mrs. Holland is a 69-year-old with history of Crohn disease, type 2 diabetes, hypertension, vaginal cancer status post radiation, solitary left kidney with hydronephrosis requiring chronic ureteral stenting, chronic hypomagnesemia, history of seizures, who presents in consultation regarding left ureteral stent exchange. The patient was scheduled to have her stent exchanged on 05/05/2019. The patient was pre admitted by Dr. Galarza due to anemia, and received blood transfusion, as well as infusions of magnesium. The patient has been having some fatigue and tiredness, but overall she feels like she is doing well. She states occasionally she will have some vaginal discomfort which she states from the prior radiation. She denies any dysuria or gross hematuria today. Denies any flank or abdominal pain. The patient is made n.p.o. at midnight in preparation for surgery today. PAST MEDICAL HISTORY: 1. History of seizures secondary to hypocalcemia. 2. Chronic hypomagnesemia. 3. Vitamin D deficiency. 4. Solitary kidney requiring chronic left ureteral stenting. 5. Crohn disease. 6. Diabetes. 7. Hypertension. 8. Chronic spondylolisthesis. 9. History of vaginal cancer status post radiation. PAST SURGICAL HISTORY: 1. Cholecystectomy. 2. Hysterectomy. 3. Tonsillectomy. 4. Multiple surgical interventions for left hydronephrosis. HOME MEDICATIONS: 1. Protonix. 2. Tricor. 3. Lexapro. 4. Ventolin. 5. Symbicort. 6. Citracal. 7. Rocaltrol. 8. Culturelle 1 tablet daily. 9. Magnesium oxide. ALLERGIES: 1. Adhesive tape. 2. Bupropion. 3. Penicillin. SOCIAL HISTORY: Former smoker. She denies alcohol or illicit drug use. FAMILY HISTORY: Father of renal cell carcinoma. REVIEW OF SYSTEMS: Twelve point review of systems performed. All pertinent positives and negative, except in HPI. PHYSICAL EXAMINATION: Vital Signs: Temperature 98.8 degrees, heart rate 88, blood pressure 118/62, oxygen saturation 94% on room air. General: No acute distress, resting comfortably in bed. Alert and oriented x3. HEENT: Normocephalic, atraumatic. Pupils equal, round, reactive to light. Neck: Trachea midline. No palpable masses. Respiratory: Good respiratory effort without audible wheezing or rales. Cardiovascular: Regular rate and rhythm. Abdomen: Soft, nontender, nondistended. : No suprapubic tenderness. No CVA tenderness. Skin: No skin lesions or rashes. Neurologic: Gross motor and sensory intact. Musculoskeletal: Moving all extremities. LABS: White blood cell count 3.8, hemoglobin 7.7, hematocrit 24.9, platelets 273. Sodium 139, potassium 3.9, chloride 103, bicarbonate 24. BUN 15, creatinine 1.6, glucose 212, magnesium 1. Urinalysis is negative for bacteria, nitrite positive, moderate amount of blood and large amount of leukocytes. ASSESSMENT AND PLAN: Mrs. Holland is a 69-year-old with vaginal cancer status post radiation, type 2 diabetes, hypertension, Crohn disease, solitary left kidney requiring chronic stent exchanges, vitamin D deficiency, hypomagnesemia and hypocalcemia, who presents in consultation regarding exchange of her left ureteral stent. The patient is scheduled to have surgery later today, and will have left retrograde pyelogram and left ureteral stent exchange. Continue n.p.o. I started her on antibiotics this morning in preparation for her surgery. We will continue for several days after surgery. She had a preoperative positive urine culture. We will continue to monitor from a urologic standpoint. Please call with questions or concerns. cc: MD Bin Alonzo MD MTDD
[2019-05-05] MEDS: TRICOR PO SCH (12:11)
[2019-05-05] MEDS: ROCALTROL PO SCH (12:11)
[2019-05-05] MEDS: CITRACAL + D PO SCH (12:11)
[2019-05-05] MEDS: CULTURELLE PO SCH (12:12)
[2019-05-05] MEDS: LEXAPRO PO SCH (12:12)
[2019-05-05 12:45] LABS: BASO# 0.01 X1000 (0.0-0.2); BASO% 0.3 % (0.0-0.8); EOS# 0.09 X1000 (0.0-0.7); EOS% 2.5 % (0.0-10.0); HEMATOCRIT 32.3 % (37.0-47.0); HEMOGLOBIN 10.3 g/dL (12.0-16.0); IMM GRAN# 0.02 X1000 (0.0-0.04); IMM GRAN% 0.6 % (0.0-0.5); LYMPH# 0.53 X1000 (1.2-3.4); LYMPH% 14.8 % (20.5-51.1); MCHC 31.9 g/dL (33-37); MCV 97.3 FL (81-99); MONO# 0.33 X1000 (0.11-0.59); MONO% 9.2 % (1.7-9.3); MPV 9.4 FL (7.4-10.4); NEUT% 72.6 % (42.2-75.2); PLT 230 X1000 (130-400); RBC 3.32 XMIL (4.2-5.4); WBC 3.58 X1000 (4.8-10.8)
[2019-05-05 13:15] LABS: CALCIUM 8.3 mg/dL (8.8-10.2); CREATININE 1.5 mg/dL (0.5-0.9); POTASSIUM 3.9 mmol/L (3.5-5.1)
[2019-05-05] MEDS ORDERED: DIPRIVAN 1% ONE (14:55)
--- NOTE | 2019-05-05 14:58 | GASTROENTEROLOGY CONSULTATION ---
DATE: 05/05/2019 PATIENT PROFILE: A 69-year-old female. REASON FOR CONSULTATION: GI bleed. HISTORY OF PRESENT ILLNESS: Ms. Holland is a 69-year-old female who had seen Dr. Galarza, and was asked to come to the hospital because her hemoglobin and hematocrit were 7.7 and 24.9. Today it is 10.3 and 32.3. The patient came in yesterday. She complained of nausea, but denied any vomiting. She said she had been having at least 5 episodes of diarrheas yesterday and 2 today. She also complained of abdominal pain. The patient has so far received 2 units of blood. Her C. difficile toxin was negative. Stool occult blood on admission was positive. The patient was recently discharged from the hospital on 03/19. She had some seizures due to her hypocalcemia and hypomagnesemia. The patient also has chronic kidney disease. The patient does have 1 left kidney, and the left kidney has chronic obstruction with hydronephrosis. Dr. Fox is going to do her stent replacement today. The patient also has Crohn disease, and she said that her Crohn has flared up and that is why she is having diarrhea. The patient mentioned that in February and March she did have multiple falls, and the reason for her falls were low calcium and low magnesium. Today, she is going to have kidney stent removed and then replaced by Dr. Fox. The patient is currently NPO. PAST MEDICAL HISTORY: History of Crohn disease, diabetes, hypertension, spondylolisthesis, history of vaginal cancer status post radiation with chronic vaginal pain. The patient has 1 kidney; left kidney with moderate hydronephrosis and chronic distal ureteral obstruction from the vaginal cancer, absence of right kidney, vitamin D deficiency, history of seizures due to hypocalcemia and hypomagnesemia. PAST SURGICAL HISTORY: Cholecystectomy, hysterectomy, tonsillectomy, multiple cystoscopies, Whipple procedure, ablations, radiations and stent placement 4 times. ALLERGIES: She is allergic to penicillin, Wellbutrin, and adhesive tape. HOME MEDICATIONS: Protonix, Tricor, Lexapro, Ventolin HFA, Symbicort, Citracal, with vitamin D, Rocaltrol, Culturelle, and magnesium oxide. SOCIAL HISTORY: The patient is . She has 3 kids. She smokes 1 pack of cigarettes, which last for the whole week. She has denied any alcohol or illicit drugs. FAMILY HISTORY: Her father of renal cell carcinoma and mother had complications from diabetes. REVIEW OF SYSTEMS: As per HPI. Otherwise, 12 point review of systems is negative. PHYSICAL EXAMINATION: Vital Signs: Temperature 98.8, pulse 85, respirations 18, blood pressure 113/59, oxygen saturation 94% on room air. The patient's weight is 113, BMI is 21.4 kg/m2. General: She is alert, oriented x3, answering questions appropriately, in no acute distress. HEENT: Pale conjunctivae, no icterus. PERRL. Neck: Supple. Lungs: Wheezing heard in the anterior atkins. Cardiovascular: Regular rate and rhythm. Abdomen: Soft, nontender, nondistended. Active bowel sounds heard in all 4 quadrants. Extremities: No clubbing, no cyanosis, no edema. Generalized edema noted bilaterally. Pedal pulses 2+ present bilaterally. Neurologic: Alert, oriented x3, nonfocal. Cranial nerves 2-12 grossly intact. LABORATORY DATA: WBCs 3.79, RBC 2.39, hemoglobin 7.7, hematocrit 24.9, platelet count 273. Sodium 139, potassium 3.9, chloride 103, carbon dioxide 24, anion gap 12. BUN 15, creatinine 1.6, glucose 212, calcium 8.6, magnesium 1.0, total bilirubin 0.17. AST 17, ALT 11, albumin is 2.6. Urinalysis showed urine protein of 70, moderate blood, positive nitrites, large leukocytes. X-RAYS: Chest x-ray showed suggestion of pulmonary venous congestion and mild interstitial edema. IMPRESSION: GI Bleed Anemia Diarrhea Abdominal pain Nausea/Vomiting History of Crohn's disease History of vaginal cancer s/p radiation Hypomagnesemia Hypocalcemia PLAN: Ms. Holland is a 69-year-old, female, who presented to the hospital with GI bleed, anemia and diarrhea. GI is consulted for GI bleed and diarrhea. The patient is having surgery with Dr. Fox for the kidney stent to be removed and replaced. The patient is currently on Levaquin antibiotics. She is receiving 40 mg of Protonix p.o. daily. She is also on Culturelle. Her H & H today was 10.3 and 32.3, she has received 2 units of blood so far. We will continue to monitor her CBC and BMP, and also monitor her diarrhea. We will plan to do an EGD and colonoscopy. If the patient's Hemoglobin drops below 7, we will transfuse PRBC's per protocol. This plan was discussed with Dr. Leach. Please call us for any further questions or concerns. Dictated by CHATO Browne for Lai Leach MD cc: MD Bin Gamez MD [facility]
[2019-05-05] MEDS ORDERED: FENTANYL ONE (15:12)
[2019-05-05] MEDS: DILAUDID ONE ×2 (16:19→16:26)
[2019-05-05] MEDS: NORCO-7.5 PO PRN (16:41)
[2019-05-05] MEDS: NORCO-7.5 ONE ×2 (16:42→16:43)
[2019-05-05] MEDS: SYMBICORT 160/4.5 MICROGM INHALER INH SCH ×2 (19:35→23:23)
--- NOTE | 2019-05-05 21:43 | PROGRESS NOTE ---
DATE: 05/05/2019 SUBJECTIVE: The patient had 2 units of packed RBC, slightly tachycardic. OBJECTIVE: Vitals are stable, and on examination Chest: Bilateral air entry. Abdomen: Belly is soft, nontender. Extremities: No peripheral edema. INVESTIGATIONS: CBC: White cell count 3.5, hematocrit 32, platelets 230,000. Sodium 139, potassium 3.9, BUN 13, creatinine 1.5, calcium 8.3, magnesium 1.5. Urinalysis positive for infection. ASSESSMENT AND PLAN: 1. Chronic hydronephrosis. Dr. Fox consult, changing the double-J stent. 2. Anemia. Heme-positive stools. 3. History of Crohn disease. Follow up on lactoferrin levels and GI consult transportation planning engineer with Dr. Leach. 4. Hypomagnesemia. Replace the magnesium. 5. Off diabetes and hypertension medicine. 6. Abnormal EKG with T-wave inversion. Currently no chest pain, probably related to magnesium. We will check the EKG in the morning as well as cardiac enzymes and we will follow up. LEVEL OF DOCUMENTATION: 25 minutes. cc: Bin Galarza MD MTDNahum
--- NOTE | 2019-05-05 22:53 | OPERATIVE NOTE ---
PROCEDURE DATE: 05/05/2019 PREOPERATIVE DIAGNOSES: 1. Left hydronephrosis. 2. Solitary kidney. 3. Left ureteropelvic junction obstruction. 4. Radiation cystitis. POSTOPERATIVE DIAGNOSES: 1. Left hydronephrosis. 2. Solitary kidney. 3. Left ureteropelvic junction obstruction. 4. Radiation cystitis. PROCEDURE PERFORMED: 1. Cystoscopy with left retrograde pyelogram. 2. Left ureteral stent exchange. SURGEON: Freddie Fox MD HAND PACKER: None. COMPLICATIONS: None. BLOOD LOSS: 2 mL. DRAINS: A 7 x 22 cm left ureteral stent. ANESTHESIA: LMA. INDICATION FOR PROCEDURE: Mrs. Holland is a 69-year-old with Type II Diabetes, history of vaginal cancer, Crohn's disease, hypomagnesemia who has had a chronic history of ureteropelvic junction obstruction of the left kidney with a solitary left kidney. The patient has had multiple episodes of acute on chronic kidney disease and urinary tract infection related to obstruction. She has been stent dependent for approximately a year now. Last stent exchange was back in February. I had seen the patient in the office and scheduled for stent exchange for 05/05/2019; however, patient was admitted by her primary care physician 1 day prior for preop optimization. She has had prior radiation for vaginal cancer and has developed radiation cystitis. We had talked with her about exchange of her stent versus definitive pyeloplasty to correct the obstruction, patient is concerned the risks of pyeloplasty outweigh the benefits. Risks, benefits and alternatives of endoscopic procedure discussed with patient, and the patient elected to proceed. DESCRIPTION OF PROCEDURE: After informed consent was obtained, patient was brought to the operating room, placed on the operating table in supine position. The patient underwent LMA placement. She had received preoperative antibiotics on the floor. She was positioned in the dorsal lithotomy position, was prepped and draped in usual sterile fashion. A preoperative time- out was performed with all parties in agreement, including anesthesia, surgical, nursing staff. At which point I inserted a 21-Macedonian cystourethroscope. The patient had significant necrotic tissue within the vagina with slight urethral stricture. I was able to pass the cystourethroscope easily into the bladder. Once inside the bladder, a large amount of erythema was seen throughout the bladder as well as the stent extruding from the left ureteral orifice. No right ureteral orifice was seen. Small amount of sediment seen at the base. This was irrigated out, and then using a flexible grasper, the tip of the stent was grasped and removed to the meatus. A wire was passed through the stent and up into the kidney itself. The stent was completely removed. The cystourethroscope was then reinserted, and opening catheter was passed through the scope, flushed of all bubbles. Left ureteral orifice was cannulated, and a retrograde pyelogram was performed, which outlined a very hydronephrotic system with a narrow ureteropelvic junction that appeared to be slightly high insertion. Contrast was seen to stay within the kidney itself and not drain out sufficiently. The open-ended catheter and cystourethroscope were removed, and then the scope was then backloaded over the ZIPwire and a 7 x 22 cm stent was then advanced up into the kidney with good curl in the kidney, upper pole and endoscopically visualized the bladder. A small amount of sediment was seen to drain from the kidney itself. Postdrainage film, showed that contrast drained adequately from the collecting system after stent was placed. The patient's bladder was cycled multiple times, and the entirety of the bladder wall was inspected again. Slight erythema was seen throughout with no active bleeding. The patient has evidence of radiation cystitis. She has undergone prior bladder biopsies, which have been negative for malignancy. The patient's bladder was decompressed, and the cystourethroscope was completely removed. The patient was awoken and was taken to recovery in stable condition. The patient will be transferred back to the floor. He will be observed overnight. The patient will ultimately need a discussion regarding management of her radiation cystitis. She has significant COPD and may not be a candidate for hyperbaric therapies. I discussed the use of DMSO as well as Elmiron in the past. May have to consider even urinary diversion if continues to have pelvic pain and irritative symptoms. cc: MD Bin Alonzo MD MTDD
[2019-05-06] MEDS: PERIDEX MT SCH ×4 (00:01→21:54)
[2019-05-06] MEDS: PROTONIX PO SCH (06:15)
[2019-05-06] MEDS: LEVAQUIN 500 MG/D5W 500 MG/100 ML IVPB IV SCH (06:16)
[2019-05-06] MEDS: NORCO-7.5 PO PRN ×4 (06:21→19:33)
[2019-05-06] MEDS: ZOFRAN IV PRN ×2 (06:45→19:28)
[2019-05-06 07:09] LABS: BASO# 0.02 X1000 (0.0-0.2); BASO% 0.5 % (0.0-0.8); EOS# 0.04 X1000 (0.0-0.7); EOS% 0.9 % (0.0-10.0); HEMATOCRIT 33.5 % (37.0-47.0); HEMOGLOBIN 10.7 g/dL (12.0-16.0); IMM GRAN# 0.03 X1000 (0.0-0.04); IMM GRAN% 0.7 % (0.0-0.5); LYMPH# 0.56 X1000 (1.2-3.4); LYMPH% 12.7 % (20.5-51.1); MCH 31.3 PG (27-31); MCHC 31.9 g/dL (33-37); MONO# 0.43 X1000 (0.11-0.59); MONO% 9.8 % (1.7-9.3); MPV 9.6 FL (7.4-10.4); NEUT# 3.32 X1000 (1.4-6.5); NEUT% 75.4 % (42.2-75.2); PLT 241 X1000 (130-400); RBC 3.42 XMIL (4.2-5.4)
--- NOTE | 2019-05-06 07:23 | EKG Report ---
Test Performed on : 05/06/2019 06:44:38 AM Test Reason : cp Blood Pressure : / mmHG Vent. Rate : 091 BPM Atrial Rate : 091 BPM P-R Int : 120 ms QRS Dur : 080 ms QT Int : 392 ms P-R-T Axes : 063 026 219 degrees QTc Int : 482 ms Normal sinus rhythm. ST & Marked T wave abnormality, consider anterolateral ischemia Prolonged QT Abnormal ECG When compared with ECG of 05-MAY-2019 07:06, No significant change was found Confirmed by Geovanni GREEN, P.J.M ([id number]) on 05/07/2019 3:08:15 PM
[2019-05-06 07:40] LABS: C REACTIVE PROT QUANT 55.35 mg/L (0.00-5.00); CALCIUM 8.4 mg/dL (8.8-10.2); CREATININE 1.4 mg/dL (0.5-0.9); MAGNESIUM 1.5 mg/dL (1.5-2.7); POTASSIUM 4.1 mmol/L (3.5-5.1)
[2019-05-06] MEDS: SYMBICORT 160/4.5 MICROGM INHALER INH SCH ×2 (08:30→19:46)
[2019-05-06] MEDS: CULTURELLE PO SCH (08:32)
[2019-05-06] MEDS: TRICOR PO SCH (08:32)
[2019-05-06] MEDS: CITRACAL + D PO SCH (08:32)
[2019-05-06] MEDS: LEXAPRO PO SCH (08:32)
[2019-05-06] MEDS: ROCALTROL PO SCH (08:32)
--- NOTE | 2019-05-06 11:02 | Diag Imaging Result Doc PS360 ---
RETROGRADES 2 OR 3 FILMS - 05/05/2019 INDICATION: LT STENT EXCHANGE TECHNIQUE: Left sided ureterogram. The exam was performed by the patient's urologist. Seven images were obtained. COMPARISON: 02/10/2019 FINDINGS: The left nephroureteral stent was removed and replaced. The new stent is in good position. Contrast injection demonstrated left hydronephrosis and dilation of the renal pelvis. IMPRESSION: Successful left nephroureteral stent replacement. Electronically signed by Solomon Sellers 05/06/2019 11:00 AM
[2019-05-06] MEDS ORDERED: GOLYTELY PO ONE (14:00)
--- NOTE | 2019-05-06 14:38 | GASTROENTEROLOGY PROGRESS NOTE ---
DATE: 05/06/2019 SUBJECTIVE: Ms. Holland is a 69-year-old female resting in bed, denie abdominal pain, nausea or vomiting. OBJECTIVE: Vital signs: 98.9, pulse 88, respirations 16, blood pressure 124/60, oxygen saturation 96%. She is on 2 L nasal cannula. Her weight is 113 pounds. BMI is 24.4 kg per m sq. General: She is alert and oriented x3 and in no acute distress. HEENT: Pale conjunctivae. No icterus. PERRL. Neck: Supple. Lungs: Wheezing heard in the anterior atkins. Cardiovascular: Regular rate and rhythm. Abdomen: Soft, nontender, nondistended. Active bowel sounds heard in all 4 quadrants. Extremities: No clubbing, no cyanosis, no edema. Pedal pulses 2+ present bilaterally. Neurologic: She is alert and oriented x3. DIAGNOSTIC DATA: WBC is 4.40, RBC is 3.4, hemoglobin 10.7, hematocrit 33.5, platelet count 241. Sodium is 142, potassium 4.1, chloride 106, carbon dioxide 25, anion gap 11, BUN is 13, creatinine 1.4, glucose 102, calcium 8.4, magnesium 1.2. Urinalysis on 05/05/2019 showed urine protein of 70, moderate blood, positive nitrite and large leukocyte. Retrograde pyelogram showed that the left nephroureteral stent was removed and replaced. The new stent is in good position. IMPRESSION AND PLAN: 1. Gastrointestinal bleed. 2. Anemia. 3. Diarrhea. 4. Abdominal pain. 5. Nausea and vomiting. 6. History of Crohn's disease. 7. History of vaginal cancer, status post radiation. 8. Hypomagnesemia and hypocalcemia. PLAN: Ms. Holland is a 69-year-old female. GI is following her for anemia, GI bleed and diarrhea. The patient's hemoglobin today is 10.7, and hematocrit is 33.5. It has been trending upwards. Her magnesium is 1.5, and her calcium is 8.4. She is currently on GI prophylaxis Protonix 40 mg p.o. daily. The patient is also receiving Levaquin antibiotic. We plan to do an EGD and colonoscopy to find out the cause of her anemia and her diarrhea. Further plan of care will be based on the EGD and colonoscopy findings. We will continue to follow the plan of care per PCP and continue to monitor the patient. We discussed the risks, benefits and alternatives of the procedure. The patient acknowledged understanding of the plan of care. This plan was discussed with Dr. Fletcher. Please call us for any further questions or concerns. Dictated by CHATO Browne for Emanuel Fletcher MD cc: Bin Galarza MD Physician Attestation I have seen and examined the patient. I have discussed and reviewed the note by Laura REIS and agree with findings and plan as documented. In brief, Ms. Monica Holland was admitted worsening macrocytic anemia, LE edema, and protein calorie malnutrition. She was transfused with appropriate increase in hgb. She underwent cystoscopy and left ureteral stent exchange for hydronephrosis on 05/05. She denies overt GI bleeding. Prior colonoscopy in 2015, showed diffuse colitis with acute inflammation and crypt distortion on biopsy. She was diagnosed with Crohn's colitis by Dr. Leach and treated with prednisone and flagyl. She reports having chronic diarrhea since then and has not been therapy for IBD. Will plan for diagnostic EGD and [facility]
--- NOTE | 2019-05-06 23:10 | PROGRESS NOTE ---
DATE: 05/06/2019 SUBJECTIVE: The patient has still diarrhea and anxious to go home. Appreciated GI consult by Dr. Leach's group. OBJECTIVE: Vital signs: Temperature is 98 degrees, pulse is 92. Vitals are stable. HEENT exam: Within normal limits. Neck: Supple. No lymphadenopathy. Chest: Clear to auscultation. Cardiovascular: Heart sounds are regular. Abdomen: Belly is soft, nontender. No obvious deficits. INVESTIGATIONS: White cell count 4, hematocrit 33, platelets 241,000, SMA 7, creatinine 1.4. ASSESSMENT AND PLAN: 1. Abnormal EKG. Asymptomatic T-wave inversions in the lateral leads. 2. Diarrhea. Heme-positive stool. 3. History of Crohn disease. EGD, colonoscopy scheduled tomorrow. 4. Chronic kidney disease stable with a stent in the left kidney. Follow up on Lactoferrin and urine cultures, and currently she is getting IV antibiotics with Levaquin, and based on that further recommendations will be followed and history of vaginal carcinoma stable. Currently patient has been referred to palliative care, and she wants to be aggressive medically and will discuss about the plan of care with hospice philosophy versus continuous medical care aggressively. LEVEL OF DOCUMENTATION: 25 minutes. cc: Bin Galarza MD
[2019-05-07] MEDS: ZOFRAN IV PRN (03:50)
[2019-05-07] MEDS: LEVAQUIN 500 MG/D5W 500 MG/100 ML IVPB IV SCH (05:32)
[2019-05-07] MEDS: PROTONIX PO SCH (06:08)
[2019-05-07] MEDS: SYMBICORT 160/4.5 MICROGM INHALER INH SCH (08:04)
[2019-05-07] MEDS ORDERED: DIPRIVAN 1% ONE ×2 (08:36→09:03)
[2019-05-07] MEDS ORDERED: XYLOCAINE-MPF 2% ONE (08:36)
[2019-05-07] MEDS ORDERED: ROBINUL ONE (08:36)
--- NOTE | 2019-05-07 09:35 | PROGRESS NOTE ---
DATE: 05/07/2019 SUBJECTIVE: Postoperative day 2 from cystoscopy and left ureteral stent exchange. The patient seems to be doing well from a urologic standpoint. The patient is made n.p.o. in preparation for endoscopy with EGD and colonoscopy today by Dr. Fletcher. The patient has had multiple episodes of diarrhea as well as bloody output with her bowel movements. She states she has been urinating without issue and denies any pelvic pain related to her recent surgery. The patient had lab work drawn yesterday which showed hemoglobin and hematocrit of 10.7 and 33.5 with creatinine of 1.4. C- reactive protein is 55.35. OBJECTIVE: Vital Signs: Temperature 98.4 degrees, heart rate 84, blood pressure 131/70, oxygen saturation 95% on 2 L nasal cannula. General: No acute distress. Resting comfortably in the bed. Alert and oriented x3. Abdomen: Soft, nontender, nondistended. No palpable masses or hepatosplenomegaly. Genitourinary: No suprapubic tenderness. No CVA tenderness. ASSESSMENT AND PLAN: Ms. Holland is a 69-year-old with type 2 diabetes, hypertension, Crohn disease, solitary left kidney requiring chronic urethral stenting, vitamin D deficiency, hypomagnesemia, history of vaginal cancer status post external radiation, who presents in followup after her ureteral stent was exchanged on Sunday. From a urologic standpoint, the patient seems to be doing well. Renal functions improved to 1.4 yesterday. She is voiding without issue. Denies significant pelvic pain. The patient is scheduled to undergo EGD and colonoscopy today by Dr. Fletcher. We will plan for her to return to clinic in several weeks for followup of her bladder and radiation cystitis. I think she has chronic changes both in her vagina, bladder and potentially her rectum related to prior radiation. I think her radiation cystitis is worsening and she may need to consider the role of hyperbarics in managing her symptoms as well as use of Elmiron or DMSO. We will continue to monitor from a urologic standpoint. Please call with questions or concerns. cc: MD Bin Alonzo MD [facility]
--- NOTE | 2019-05-07 09:38 | ENDOSCOPY OPERATIVE NOTE ---
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 PROCEDURE PERFORMED: EGD w/ biopsy MEDICATIONS: Per Anesthesia TOPICAL ANESTHETIC: none CONSENT: The patient understands the risks and benefits of the procedure and understands that these r isks include, but are not limited to: sedation, allergic reaction, infection, perforation and/or bleeding. Alternative means of evaluation and treatment include, among others: physical exam, x-rays, and/or surgical intervention. The patient elects to proceed with this endoscopic procedure. HISORY AND PHYSICAL: 05/07/2019 DESCRIPTION OF PROCEDURE: During intra-op preparation period all mechanical and medical equipment was checked for proper function. Hand hygiene and appropriate measures for infection prevention was taken. After the risks, benefits and alternatives of the procedure were thoroughly explained, Informed consent was verified, confirmed and timeout was successfully executed by the treatment team. The patient was anesthetized with topical anesthesia and the endoscope was introduced through the mouth and advanced to the second portion of the duodenum. Retroflexion wa s performed in the stomach and revealed no abnormalities. The gastroscope was then slowly withdrawn and removed. ESOPHAGUS: The mucosa of the esophagus appeared normal. The z-line was noted at 35cm from the incis ors. The z-line appeared normal. STOMACH: The stomach was normal. DUODENUM: The duodenum was normal. A biopsy was performed using cold forceps. Sample sent for histo logy. SPECIMENS REMOVED: Yes ADVERSE EVENTS: There were no complications. POSTOPERATIVE DIAGNOSIS: 1. The mucosa of the esophagus appeared normal 2. The z-line was noted at 35cm from the incisors 3. The stomach was normal 4. The duodenum was normal; biopsy was performed RECOMMENDATIONS: 1. Await biopsy results 2. Continue to colonoscopy procedure REPEAT EXAM: Emanuel Fletcher MD eSigned: Emanuel Fletcher MD 05/07/2019 9:37 AM cc: PATIENT NAME: Monica Holland MR#: [id number]
--- NOTE | 2019-05-07 09:50 | ENDOSCOPY OPERATIVE NOTE ---
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 PROCEDURE PERFORMED: Colonoscopy with biopsy Colonoscopy with snare polypectomy MEDICATIONS: Per Anesthesia PREP TYPE: GoLytely
[2019-05-07] MEDS: PERIDEX MT SCH (13:08)
[2019-05-07] MEDS: ROCALTROL PO SCH (13:08)
[2019-05-07] MEDS: TRICOR PO SCH (13:08)
[2019-05-07] MEDS: CULTURELLE PO SCH (13:08)
[2019-05-07] MEDS: CITRACAL + D PO SCH (13:08)
[2019-05-07] MEDS: LEXAPRO PO SCH (13:09)
--- NOTE | 2019-05-07 14:44 | Diag Imaging Result Doc PS360 ---
EXAM: MRI PELVIS W/WO CONTRAST 05/07/2019 HISTORY: possible perianal fistula TECHNIQUE: Coronal T1, T2, T2 and T1 post gadolinium axial, sagittal T2. COMMENT: There is free fluid in the pelvis. There is subcutaneous edema over the left flank. There is left-sided hydronephrosis. The urinary bladder is not distended. There are some apparent metallic artifacts. There is edema in the anterior hamstring region bilaterally. No definite abscess is demonstrated. There is no definite fistula. There is no evidence of acute bony abnormality. IMPRESSION: Ascites and subcutaneous edema. Electronically signed by Chidi Morris 05/07/2019 2:41 PM
[2019-05-07 16:33] VITALS: BP 115/68
--- NOTE | 2019-05-08 18:41 | DISCHARGE SUMMARY ---
ADMISSION DATE: 05/04/2019 DISCHARGE DATE: 05/07/2019 DISCHARGING DIAGNOSIS: Diarrhea, heme-positive stools, due to Crohn's proctitis with impending fistular disease. SECONDARY DIAGNOSES: 1. Hypomagnesemia. 2. Hypocalcemia due to hypomagnesemia. 3. Type 2 diabetes, off medications. 4. History of vaginal cancer, status post radiation. 5. Absence of right kidney. 6. Chronic kidney disease with solitary kidney on the left side with a moderate hydronephrosis at ureterovesical junction obstruction. 7. Anemia due to heme-positive stool, requiring 2 units of packed RBCs. 8. Bilateral dependent edema due to hypoproteinemia. Venous Dopplers were negative in the right leg. 9. Chronic spondylolysis of L5-S1. 10. 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 11. Abnormal EKG with symmetrical T-wave inversion in the lateral leads, currently asymptomatic. CONSULTS: 1. Dr. Freddie Fox. 2. Dr. Fletcher. PROCEDURES: 1. Transfusion of 2 units of packed RBCs. 2. Magnesium infusion. 3. Cystoscopy with exchange of new double-J stent. 4. Colonoscopy: Findings--multiple sessile polyps were removed. Patchy colitis in the sigmoid and rectum with old dark red blood. Multiple biopsies were done. Possible rectal fistula. 5. EGD unremarkable. No evidence of ulcers. RADIOLOGY PROCEDURES: 1. Pelvic MRI: Some subcutaneous edema, ascites, chronically left-sided hydronephrosis. 2. Chest x-ray: Stable with chronic interstitial disease. BRIEF HISTORY: Please see the history and physical that was done on 05/04/2019. In brief, she is a 69-year-old white female with multiple medical problems, admitted to the hospital with anemia, diarrhea, hypomagnesemia, swelling of legs, right is worse than the left side. Venous Dopplers were negative for DVT. HOSPITAL COURSE: The problems I am going to summarize as follows: 1. Anemia, heme-positive stools, chronic diarrhea. The patient thought Mag oxide is causing the diarrhea. She has history of Crohn disease, previously seen by Dr. Leach's group. The patient did require 2 units of packed RBCs. EGD/colonoscopy findings showed active Crohn's in the sigmoid and rectal area and multiple sessile polyps. Biopsies were done. The patient had MRI of the pelvis, did not show any evidence of fistula. The patient was given Flagyl, Imodium and probiotics and to follow up with Dr. Leach's group. 2. Hypomagnesemia. Given 2 gm of Mag sulfate. Followup magnesium 1.5. 3. Hypocalcemia causing seizures. Continue with calcium, vitamin D, with Rocaltrol. 4. Chronic pelvic pain due to vaginal cancer, status post radiation and taking the lidocaine cream topical and [place] as needed. 5. Dependent edema. Given Lasix, much improved after blood transfusion. Venous Dopplers were negative. 6. Abnormal EKG with symmetrical T-wave inversion, currently asymptomatic. This could be from the hypomagnesemia and follow up EKG did not change. I would suspect in the down the line rule out cardiac workup if she has any symptoms. 7. Chronic kidney disease. She was born with absence of right kidney and she has a chronically hydronephrosis of the left kidney and Dr. Fox changes every 8 weeks the stent. Urine cultures mixed mario. LABORATORY DATA FOLLOWS AT THE TIME OF DISCHARGE: CBC: White cell count 4.4, hematocrit 33.5, platelet count 241,000. Sodium 142, potassium 4.1, chloride 106, BUN 13, creatinine 1.4. Sugars are running 100, calcium 8.4, magnesium 1.5. Cardiac enzymes were negative. CRP was high, proBNP also 7.000. DISCHARGE INSTRUCTIONS: The patient is anxious to go home for Thanksgiving. Discharged home with the following instructions: 1. Protonix 40 daily, Lexapro 20 daily, Geritol 1 tablet daily, Ventolin HFA every 8 as needed, Symbicort 160/4.5 p.o. b.i.d., Citracal with vitamin D 1 tablet daily, calcitriol 0.25 mg daily, Culturelle 1 tablet daily, loperamide as needed, and Mag oxide 1 tablet daily, Flagyl 250 t.i.d. 2. Since she has abnormal EKG and elevated proBNP, abnormal chest x-ray with cardiomegaly, we will do outpatient workup for cardiac, at least an echocardiography and, based on that, further recommendations will be followed. 3. She also needs follow up on biopsies report and see Dr. Leach's group for Crohn's disease. 4. Continue to monitor Dr. Fox about chronic hydronephrosis of the left kidney. 5. Apparently the patient was referred by Dr. Rao for hospice care. At this time, patient continues to have seeking aggressive medical attention. We will continue to monitor her disease process with all these medical problems down the line. Discussed with the family at bedside. Follow up in my office next week, as well as other consultants. Please send pan Leach's group. cc: MD Freddie Black MD Babu Kantamneni, MD MTDD
== END 2019-05-07 18:33 | disposition home or self-care (01) | DRG 348 ==
LOC: 4N 18:40 → EDSTATUS 05-05 14:00
PROVIDERS: ADMIT Internal Medicine; ATTEND Internal Medicine
PROC: EN.HEAT (2019-05-07 08:31)